=== PATIENT | male | born 1965 | race African-American/Black ===

== ENCOUNTER 2016-04-13 09:05 | Inpatient (IN) | payer OTHER ==
[2016-04-13 09:17] VITALS: BMI 36.1
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
[2016-04-13] MEDS ORDERED: chlordiazePOXIDE HCL 25 MG CAPSULE PO PRN (09:31)
[2016-04-13] MEDS ORDERED: P-EPHED 60MG/TRIPROLIDI 2.5MG TABLET PO PRN (09:31)
[2016-04-13] MEDS ORDERED: IBUPROFEN 400 MG TABLET (FP) PO PRN (09:31)
[2016-04-13] MEDS ORDERED: guaiFENesin/D-METHORPHAN HB 10 ML UNIT-DOSE CUPS PO PRN (09:31)
[2016-04-13] MEDS ORDERED: chlordiazePOXIDE HCL 25 MG CAPSULE PO ONE (09:31)
[2016-04-13] MEDS ORDERED: ACETAMINOPHEN 325 MG TABLET (FP) PO PRN (09:31)
[2016-04-13] MEDS ORDERED: MAGNESIUM HYDROX 2400MG/30ML ORAL SUSPENSION 30 ML CUP PO PRN (09:31)
[2016-04-13] MEDS ORDERED: diphenhydrAMINE HCL 50 MG CAPSULE PO PRN (09:31)
[2016-04-13] MEDS ORDERED: MAG HYDROX/AL HYDROX/SIMETH 30 ML UNIT-DOSE CUP PO PRN (09:31)
[2016-04-13] MEDS ORDERED: MAGNESIUM CITRATE 300 ML BOTTLE PO PRN (09:31)
[2016-04-13] MEDS ORDERED: LOPERAMIDE HCL 2 MG CAPSULE PO PRN (09:31)
[2016-04-13] MEDS: chlordiazePOXIDE HCL 25 MG CAPSULE PO SCH ×3 (12:10→22:21)
[2016-04-13] MEDS: METOPROLOL SUCCINATE 100 MG TAB.SR.24H (FP) PO SCH (12:11)
[2016-04-13] MEDS: amLODIPine BESYLATE 10 MG TABLET (FP) PO SCH (12:11)
[2016-04-13] MEDS: PRENATAL VITAMINS W/ FOLIC ACID TABLET (FP) PO SCH (12:12)
--- NOTE | 2016-04-13 16:15 | EKG ---
Test Reason : Blood Pressure : / mmHG Vent. Rate : 073 BPM Atrial Rate : 073 BPM P-R Int : 140 ms QRS Dur : 098 ms QT Int : 370 ms P-R-T Axes : 044 060 029 degrees QTc Int : 407 ms NORMAL SINUS RHYTHM MODERATE VOLTAGE CRITERIA FOR LVH, MAY BE NORMAL VARIANT BORDERLINE ECG NO PREVIOUS ECGS AVAILABLE Confirmed by ALEXANDRU TAFOYA MD ([id number]) on 04/13/2016 4:14:59 PM Referred By: Confirmed By:ALEXANDRU TAFOYA MD
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
[2016-04-13 17:57] LABS: URINE APPEARANCE CLEAR; URINE BILIRUBIN NEGATIVE (NEGATIVE); URINE BLOOD NEGATIVE (NEGATIVE); URINE COLOR YELLOW; URINE GLUCOSE (UA) NEGATIVE (NEGATIVE); URINE KETONE NEGATIVE (NEGATIVE); URINE LEUK ESTERASE NEGATIVE (NEGATIVE); URINE NITRITE NEGATIVE (NEGATIVE); URINE UROBILINOGEN NEGATIVE E.U./dl (0.2-1.0)
[2016-04-13 18:13] LABS: URINE PROTEIN 2+ (NEGATIVE)
[2016-04-13 18:49] LABS: URINE MUCUS RARE; URINE RBC 5 /hpf (0-3); URINE WBC <1 /hpf (3-5)
[2016-04-13] MEDS: THIAMINE HCL 100 MG TABLET (FP) PO SCH (22:22)
[2016-04-14] MEDS: chlordiazePOXIDE HCL 25 MG CAPSULE PO SCH ×4 (05:20→22:18)
[2016-04-14] MEDS: MENTHOL/PHENOL 1 EACH UD MM PRN (05:22)
[2016-04-14 09:16] LABS: MCH 32.3 pg (25.7-33.7); MCHC 33.5 g/dl (32.0-35.9); MEAN CELL VOLUME 96.6 fl (80-96); PLATELET COUNT 261 K/MM3 (134-434); RDW 13.8 % (11.9-15.9); WHITE BLOOD COUNT 7.2 K/mm3 (4.0-10.0)
[2016-04-14 09:36] LABS: BILIRUBIN,TOTAL 0.8 mg/dL (0.2-1.0); CALCIUM 9.1 mg/dL (8.5-10.1); CREATININE 1.5 mg/dL (0.7-1.3); TOT PROT 7.9 g/dl (6.4-8.2)
[2016-04-14] MEDS: PRENATAL VITAMINS W/ FOLIC ACID TABLET (FP) PO SCH (10:17)
[2016-04-14] MEDS: amLODIPine BESYLATE 10 MG TABLET (FP) PO SCH (10:18)
[2016-04-14] MEDS: METOPROLOL SUCCINATE 100 MG TAB.SR.24H (FP) PO SCH (10:18)
--- NOTE | 2016-04-14 14:25 | PN ---
S CIWA - CIWA Score Nausea/Vomitin-Mild Nausea/No Vomiting Muscle Tremors: 4-Moderate,w/Arms Extend Anxiety: 4-Mod. Anxious/Guarded Agitation: 4-Moderately Restless Paroxysmal Sweats: No Perspiration Orientation: 0-Oriented Tacttile Disturbances: 1-Very Mild Itch/Numbness Auditory Disturbances: 0-None Visual Disturbances: 0-None Headache: 2-Mild CIWA-Ar Total Score: 16 BHS Progress Note (SOAP) Subjective: Anxious, interrupted sleep, tremor, sweating, restless Objective: 04/14/16 14:21 Last Vital Signs Temp Pulse Resp BP Pulse Ox 96.8 F L 88 18 127/78 04/14/16 13:34 04/14/16 13:34 04/14/16 13:34 04/14/16 13:34 Laboratory Tests 04/13/16 04/14/16 04/14/16 14:00 07:20 07:20 WBC 7.2 RBC 4.53 Hgb 14.6 Hct 43.8 MCV 96.6 H MCHC 33.5 RDW 13.8 Plt Count 261 MPV 11.0 Sodium 144 Potassium 4.0 Chloride 108 H Carbon Dioxide 28 Anion Gap 8 BUN 9 Creatinine 1.5 H Creat Clearance w eGFR 49.15 Random Glucose 91 D Calcium 9.1 Total Bilirubin 0.8 D AST 16 ALT 23 Alkaline Phosphatase 85 Total Protein 7.9 Albumin 4.0 Urine Color Yellow Urine Appearance Clear Urine pH 5.0 Ur Specific [place] 1.016 Urine Protein 2+ H Urine Glucose (UA) Negative Urine Ketones Negative Urine Blood Negative Urine Nitrite Negative Urine Bilirubin Negative Urine Urobilinogen Negative Ur Leukocyte Esterase Negative Urine RBC 5 Urine WBC <1 Ur Epithelial Cells Rare Urine Mucus Rare RPR Titer 04/14/16 07:20 WBC RBC Hgb Hct MCV MCHC RDW Plt Count MPV Sodium Potassium Chloride Carbon Dioxide Anion Gap BUN Creatinine Creat Clearance w eGFR Random Glucose Calcium Total Bilirubin AST ALT Alkaline Phosphatase Total Protein Albumin Urine Color Urine Appearance Urine pH Ur Specific [place] Urine Protein Urine Glucose (UA) Urine Ketones Urine Blood Urine Nitrite Urine Bilirubin Urine Urobilinogen Ur Leukocyte Esterase Urine RBC Urine WBC Ur Epithelial Cells Urine Mucus RPR Titer Nonreactive Labs noted: serum creatinine 1.5, UA: 2+ protein Assessment: 04/14/16 14:25 Withdrawal symptoms Noted with elevated serum creatinine Noted with proteinuria Plan: Continue detox Elevated creatinine: encouraged to drink lots of water, repeat BMP Proteinuria: repeat UA
[2016-04-14 17:33] LABS: URINE APPEARANCE CLEAR; URINE BILIRUBIN NEGATIVE (NEGATIVE); URINE BLOOD NEGATIVE (NEGATIVE); URINE COLOR STRAW; URINE GLUCOSE (UA) NEGATIVE (NEGATIVE); URINE KETONE NEGATIVE (NEGATIVE); URINE LEUK ESTERASE NEGATIVE (NEGATIVE); URINE NITRITE NEGATIVE (NEGATIVE); URINE PROTEIN NEGATIVE (NEGATIVE); URINE UROBILINOGEN NEGATIVE E.U./dl (0.2-1.0)
[2016-04-14] MEDS: THIAMINE HCL 100 MG TABLET (FP) PO SCH (22:19)
[2016-04-15] MEDS: chlordiazePOXIDE HCL 25 MG CAPSULE PO SCH (05:35)
--- NOTE | 2016-04-15 10:07 | PN ---
[facility] CIWA - CIWA Score Nausea/Vomitin-No Nausea/No Vomiting Muscle Tremors: 3 Anxiety: 4-Mod. Anxious/Guarded Agitation: 4-Moderately Restless Paroxysmal Sweats: 3 Orientation: 0-Oriented Tacttile Disturbances: 0-None Auditory Disturbances: 0-None Visual Disturbances: 0-None Headache: 0-None Present CIWA-Ar Total Score: 14 BHS Progress Note (SOAP) Subjective: ANXIETY,TREMORS,SWEATING,INTERRUPTED SLEEP,RESTLESS Objective: 04/15/16 10:06 Vital Signs - 8 hr 04/15/16 04/15/16 03:30 06:36 Temperature 97.7 F Pulse Rate 83 Respiratory 20 16 Rate Blood Pressure 149/87 Laboratory Last Values WBC 7.2 K/mm3 (4.0-10.0) 04/14/16 07:20 RBC 4.53 M/mm3 (4.00-5.60) 04/14/16 07:20 Hgb 14.6 GM/dL (11.7-16.9) 04/14/16 07:20 Hct 43.8 % (35.4-49) 04/14/16 07:20 MCV 96.6 fl (80-96) H 04/14/16 07:20 MCHC 33.5 g/dl (32.0-35.9) 04/14/16 07:20 RDW 13.8 % (11.9-15.9) 04/14/16 07:20 Plt Count 261 K/MM3 (134-434) 04/14/16 07:20 MPV 11.0 fl (7.5-11.1) 04/14/16 07:20 Sodium 144 mmol/L (136-145) 04/14/16 07:20 Potassium 4.0 mmol/L (3.5-5.1) 04/14/16 07:20 Chloride 108 mmol/L (98-107) H 04/14/16 07:20 Carbon Dioxide 28 mmol/L (21-32) 04/14/16 07:20 Anion Gap 8 (8-16) 04/14/16 07:20 BUN 9 mg/dL (7-18) 04/14/16 07:20 Creatinine 1.5 mg/dL (0.7-1.3) H 04/14/16 07:20 Creat Clearance w eGFR 49.15 (>60) 04/14/16 07:20 Random Glucose 91 mg/dL (74-106) D 04/14/16 07:20 Calcium 9.1 mg/dL (8.5-10.1) 04/14/16 07:20 Total Bilirubin 0.8 mg/dL (0.2-1.0) D 04/14/16 07:20 AST 16 U/L (15-37) 04/14/16 07:20 ALT 23 U/L (12-78) 04/14/16 07:20 Alkaline Phosphatase 85 U/L (45-117) 04/14/16 07:20 Total Protein 7.9 g/dl (6.4-8.2) 04/14/16 07:20 Albumin 4.0 g/dl (3.4-5.0) 04/14/16 07:20 Urine Color Straw 04/14/16 11:00 Urine Appearance Clear 04/14/16 11:00 Urine pH 7.0 (5.0-8.0) D 04/14/16 11:00 Ur Specific [place] 1.009 (1.001-1.035) 04/14/16 11:00 Urine Protein Negative (NEGATIVE) 04/14/16 11:00 Urine Glucose (UA) Negative (NEGATIVE) 04/14/16 11:00 Urine Ketones Negative (NEGATIVE) 04/14/16 11:00 Urine Blood Negative (NEGATIVE) 04/14/16 11:00 Urine Nitrite Negative (NEGATIVE) 04/14/16 11:00 Urine Bilirubin Negative (NEGATIVE) 04/14/16 11:00 Urine Urobilinogen Negative E.U./dl (0.2-1.0) 04/14/16 11:00 Ur Leukocyte Esterase Negative (NEGATIVE) 04/14/16 11:00 Urine RBC 5 /hpf (0-3) 04/13/16 14:00 Urine WBC <1 /hpf (3-5) 04/13/16 14:00 Ur Epithelial Cells Rare /hpf (FEW) 04/13/16 14:00 Urine Mucus Rare 04/13/16 14:00 RPR Titer Nonreactive (NONREACTIVE) 04/14/16 07:20 LABS NOTED Assessment: 04/15/16 10:07 WITHDRAWAL SX. Plan: CONTINUE DETOX
[2016-04-15] MEDS: PRENATAL VITAMINS W/ FOLIC ACID TABLET (FP) PO SCH (10:20)
[2016-04-15] MEDS: amLODIPine BESYLATE 10 MG TABLET (FP) PO SCH (10:20)
[2016-04-15] MEDS: METOPROLOL SUCCINATE 100 MG TAB.SR.24H (FP) PO SCH (10:20)
[2016-04-15] MEDS: chlordiazePOXIDE 5 MG CAPSULE PO SCH ×3 (10:21→22:35)
[2016-04-15] MEDS: MENTHOL/PHENOL 1 EACH UD MM PRN ×2 (10:23→17:02)
[2016-04-15] MEDS: SODIUM CHLORIDE NASAL SPRAY 44 ML BOTTLE NS PRN (11:02)
[2016-04-15] MEDS: diphenhydrAMINE HCL 50 MG CAPSULE PO SCH (22:35)
[2016-04-15] MEDS: THIAMINE HCL 100 MG TABLET (FP) PO SCH (22:35)
[2016-04-16] MEDS: SODIUM CHLORIDE NASAL SPRAY 44 ML BOTTLE NS PRN (03:23)
[2016-04-16] MEDS: MENTHOL/PHENOL 1 EACH UD MM PRN (05:27)
[2016-04-16] MEDS: chlordiazePOXIDE 5 MG CAPSULE PO SCH (05:27)
[2016-04-16] MEDS: METOPROLOL SUCCINATE 100 MG TAB.SR.24H (FP) PO SCH (10:27)
[2016-04-16] MEDS: PRENATAL VITAMINS W/ FOLIC ACID TABLET (FP) PO SCH (10:28)
[2016-04-16] MEDS: amLODIPine BESYLATE 10 MG TABLET (FP) PO SCH (10:28)
[2016-04-16] MEDS: AZITHROMYCIN 250 MG TABLET (FP) PO SCH (10:29)
[2016-04-16] MEDS: chlordiazePOXIDE HCL 10 MG CAPSULE PO SCH ×3 (10:30→22:21)
--- NOTE | 2016-04-16 11:36 | PN ---
BHS Progress Note (SOAP) Subjective: SWEATING,INTERRUPTED SLEEP,RESTLESS.C/O PRODUCTIVE COUGH,PLEURITIC CHEST PAIN & SORE THROAT. Objective: 04/16/16 11:33 Vital Signs - 8 hr 04/16/16 04/16/16 06:18 09:19 Temperature 98 F 99.7 F H Pulse Rate 88 99 H Respiratory 16 20 Rate Blood Pressure 109/71 126/83 Laboratory Last Values WBC 7.2 K/mm3 (4.0-10.0) 04/14/16 07:20 RBC 4.53 M/mm3 (4.00-5.60) 04/14/16 07:20 Hgb 14.6 GM/dL (11.7-16.9) 04/14/16 07:20 Hct 43.8 % (35.4-49) 04/14/16 07:20 MCV 96.6 fl (80-96) H 04/14/16 07:20 MCHC 33.5 g/dl (32.0-35.9) 04/14/16 07:20 RDW 13.8 % (11.9-15.9) 04/14/16 07:20 Plt Count 261 K/MM3 (134-434) 04/14/16 07:20 MPV 11.0 fl (7.5-11.1) 04/14/16 07:20 Sodium 144 mmol/L (136-145) 04/14/16 07:20 Potassium 4.0 mmol/L (3.5-5.1) 04/14/16 07:20 Chloride 108 mmol/L (98-107) H 04/14/16 07:20 Carbon Dioxide 28 mmol/L (21-32) 04/14/16 07:20 Anion Gap 8 (8-16) 04/14/16 07:20 BUN 9 mg/dL (7-18) 04/14/16 07:20 Creatinine 1.5 mg/dL (0.7-1.3) H 04/14/16 07:20 Creat Clearance w eGFR 49.15 (>60) 04/14/16 07:20 Random Glucose 91 mg/dL (74-106) D 04/14/16 07:20 Calcium 9.1 mg/dL (8.5-10.1) 04/14/16 07:20 Total Bilirubin 0.8 mg/dL (0.2-1.0) D 04/14/16 07:20 AST 16 U/L (15-37) 04/14/16 07:20 ALT 23 U/L (12-78) 04/14/16 07:20 Alkaline Phosphatase 85 U/L (45-117) 04/14/16 07:20 Total Protein 7.9 g/dl (6.4-8.2) 04/14/16 07:20 Albumin 4.0 g/dl (3.4-5.0) 04/14/16 07:20 Urine Color Straw 04/14/16 11:00 Urine Appearance Clear 04/14/16 11:00 Urine pH 7.0 (5.0-8.0) D 04/14/16 11:00 Ur Specific [place] 1.009 (1.001-1.035) 04/14/16 11:00 Urine Protein Negative (NEGATIVE) 04/14/16 11:00 Urine Glucose (UA) Negative (NEGATIVE) 04/14/16 11:00 Urine Ketones Negative (NEGATIVE) 04/14/16 11:00 Urine Blood Negative (NEGATIVE) 04/14/16 11:00 Urine Nitrite Negative (NEGATIVE) 04/14/16 11:00 Urine Bilirubin Negative (NEGATIVE) 04/14/16 11:00 Urine Urobilinogen Negative E.U./dl (0.2-1.0) 04/14/16 11:00 Ur Leukocyte Esterase Negative (NEGATIVE) 04/14/16 11:00 Urine RBC 5 /hpf (0-3) 04/13/16 14:00 Urine WBC <1 /hpf (3-5) 04/13/16 14:00 Ur Epithelial Cells Rare /hpf (FEW) 04/13/16 14:00 Urine Mucus Rare 04/13/16 14:00 RPR Titer Nonreactive (NONREACTIVE) 04/14/16 07:20 LABS NOTED THROAT : ENLARGED LEFT TONSIL LUNGS : GROSSLY CLEAR EXCEPT FOR A FEW SCATTERED RHONCHI Assessment: 04/16/16 11:35 WITHDRAWAL SX. R/O URI R/O BRONCHITIS Plan: CONTINUE DETOX ZYTHROMAX 500MG PO X 7 DAYS.
[2016-04-16] MEDS ORDERED: diphenhydrAMINE HCL 25 MG CAPSULE (FP) PO ONE (21:27)
[2016-04-16] MEDS: THIAMINE HCL 100 MG TABLET (FP) PO SCH (22:21)
[2016-04-16] MEDS: diphenhydrAMINE HCL 50 MG CAPSULE PO SCH (22:21)
[2016-04-17] MEDS: chlordiazePOXIDE HCL 10 MG CAPSULE PO SCH (05:25)
[2016-04-17] MEDS: AZITHROMYCIN 250 MG TABLET (FP) PO SCH (09:04)
[2016-04-17] MEDS: PRENATAL VITAMINS W/ FOLIC ACID TABLET (FP) PO SCH (09:04)
[2016-04-17] MEDS: amLODIPine BESYLATE 10 MG TABLET (FP) PO SCH (09:04)
[2016-04-17 09:50] VITALS: BP 121/76; PULSE 93; TEMP 97.1
--- NOTE | 2016-04-17 12:35 | DS ---
[facility] Detox Discharge Summary Admission Date: 04/13/16 Discharge Date: 04/17/16 - History Present History: Alcohol Dependence, Cocaine Dependence Additional Comments: DETOX COMPLETED. Pertinent Past History: HIV+ HTNLIPOMA ARM OSTEOARTHRITIS KNEE TINEA VESICOLOR OBESITY - Physical Exam Results Vital Signs: Vital Signs Temperature 97.1 F L 04/17/16 09:50 Pulse Rate 93 H 04/17/16 09:50 Respiratory Rate 18 04/17/16 09:50 Blood Pressure 121/76 04/17/16 09:50 O2 Sat by Pulse Oximetry (%) Pertinent Admission Physical Exam Findings: WITHDRAWAL SX - Treatment Hospital Course: Detox Protocol Followed, Detoxed Safely, Responded well, Discharged Condition Good - Medication Discharge Medications: Ambulatory Orders Metoprolol Succinate [Toprol XL -] 100 mg PO DAILY 12/29/13 Amlodipine Besylate [Norvasc -] 10 mg PO DAILY 04/13/16 - Diagnosis (1) Human immunodeficiency virus infection Status: Chronic (2) Alcohol dependence with uncomplicated withdrawal Status: Acute (3) Lipoma of arm Status: Chronic (4) Nicotine dependence Status: Chronic Qualifiers: Nicotine product type: cigarettes Substance use status: uncomplicated Qualified Code(s): F17.210 - Nicotine dependence, cigarettes, uncomplicated (5) Tinea versicolor Status: Chronic (6) HTN (hypertension) Status: Chronic Qualifiers: Hypertension type: essential hypertension Qualified Code(s): I10 - Essential (primary) hypertension (7) Knee osteoarthritis Status: Chronic Qualifiers: Osteoarthritis type: unspecified Laterality: bilateral Qualified Code(s): M17.0 - Bilateral primary osteoarthritis of knee (8) Obesity (BMI 30-39.9) Status: Chronic - AMA Did Patient Leave Against Medical Advice: No
== END 2016-04-17 08:56 | disposition home or self-care (01) | DRG 775 ==
LOC: YASAS 09:05 → Y3N 10:57
PROVIDERS: ADMIT Internal Medicine; ATTEND Internal Medicine
PROC: HZ2ZZZZ Detoxification Services for Substance Abuse Treatment (ICD-10-PCS; principal; 2016-04-13)
DX: F10.230 Alcohol dependence with withdrawal, uncomplicated (principal); F17.210 Nicotine dependence, cigarettes, uncomplicated; Z21 Asymptomatic human immunodeficiency virus [HIV] infection status; D17.20 Benign lipomatous neoplasm of skin and subcutaneous tissue of unspecified limb; B36.0 Pityriasis versicolor; I10 Essential (primary) hypertension; M17.0 Bilateral primary osteoarthritis of knee; E66.9 Obesity, unspecified; Z68.36 Body mass index [BMI] 36.0-36.9, adult; R79.89 Other specified abnormal findings of blood chemistry; R80.9 Proteinuria, unspecified; J06.9 Acute upper respiratory infection, unspecified; J40 Bronchitis, not specified as acute or chronic
CPT/HCPCS: 36415; 80053; 81003; 81015; 85027; 86593; 93005; 93010

== ENCOUNTER 2016-08-11 08:45 | Inpatient (IN) | payer OTHER ==
[2016-08-11 09:23] VITALS: BMI 35.6
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
[2016-08-11] MEDS ORDERED: P-EPHED 60MG/TRIPROLIDI 2.5MG TABLET PO PRN (14:30)
[2016-08-11] MEDS ORDERED: MAG HYDROX/AL HYDROX/SIMETH 30 ML UNIT-DOSE CUP PO PRN (14:30)
[2016-08-11] MEDS ORDERED: chlordiazePOXIDE HCL 25 MG CAPSULE PO PRN (14:30)
[2016-08-11] MEDS ORDERED: MAGNESIUM HYDROX 2400MG/30ML ORAL SUSPENSION 30 ML CUP PO PRN (14:30)
[2016-08-11] MEDS ORDERED: chlordiazePOXIDE HCL 25 MG CAPSULE PO ONE (14:30)
[2016-08-11] MEDS ORDERED: MENTHOL/PHENOL 1 EACH UD MM PRN (14:30)
[2016-08-11] MEDS ORDERED: IBUPROFEN 400 MG TABLET (FP) PO PRN (14:30)
[2016-08-11] MEDS ORDERED: LOPERAMIDE HCL 2 MG CAPSULE PO PRN (14:30)
[2016-08-11] MEDS ORDERED: hydrOXYzine PAMOATE 50 MG CAPSULE (FP) PO PRN (14:30)
[2016-08-11] MEDS ORDERED: diphenhydrAMINE HCL 50 MG CAPSULE PO PRN (14:30)
[2016-08-11] MEDS ORDERED: ACETAMINOPHEN 325 MG TABLET (FP) PO PRN (14:30)
[2016-08-11] MEDS ORDERED: guaiFENesin/D-METHORPHAN HB 10 ML UNIT-DOSE CUPS PO PRN (14:30)
[2016-08-11] MEDS ORDERED: MAGNESIUM CITRATE 300 ML BOTTLE PO PRN (14:30)
[2016-08-11] MEDS: chlordiazePOXIDE HCL 25 MG CAPSULE PO SCH ×2 (17:30→22:25)
[2016-08-11 19:42] LABS: URINE APPEARANCE CLEAR; URINE BILIRUBIN NEGATIVE (NEGATIVE); URINE BLOOD NEGATIVE (NEGATIVE); URINE COLOR YELLOW; URINE GLUCOSE (UA) NEGATIVE (NEGATIVE); URINE KETONE NEGATIVE (NEGATIVE); URINE LEUK ESTERASE NEGATIVE (NEGATIVE); URINE NITRITE NEGATIVE (NEGATIVE); URINE PROTEIN 2+ (NEGATIVE); URINE UROBILINOGEN NEGATIVE E.U./dl (0.2-1.0)
[2016-08-11 20:00] LABS: URINE MUCUS RARE; URINE RBC <1 /hpf (0-3); URINE WBC 1 /hpf (3-5)
[2016-08-11] MEDS: THIAMINE HCL 100 MG TABLET (FP) PO SCH (22:25)
[2016-08-12] MEDS: chlordiazePOXIDE HCL 25 MG CAPSULE PO SCH ×3 (05:53→17:13)
[2016-08-12] MEDS ORDERED: METOPROLOL SUCCINATE 50 MG TAB.SR.24H (FP) ONE (09:25)
[2016-08-12 10:07] LABS: MCH 31.8 pg (25.7-33.7); MEAN CELL VOLUME 96.5 fl (80-96); MEAN PLT VOLUME 10.4 fl (7.5-11.1); PLATELET COUNT 219 K/MM3 (134-434); WHITE BLOOD COUNT 7.5 K/mm3 (4.0-10.0)
[2016-08-12 10:24] LABS: ALBUMIN 3.7 g/dl (3.4-5.0); ALK PHOS 85 U/L (45-117); ANION GAP 7 (8-16); BILIRUBIN,TOTAL 0.4 mg/dL (0.2-1.0); CALCIUM 8.8 mg/dL (8.5-10.1); CO2 26 mmol/L (21-32); COCKROFT - GAULT 123.3; CREATININE 1.2 mg/dL (0.7-1.3); GLUCOSE,RANDOM 102 mg/dL (74-106); SGOT/AST 18 U/L (15-37); SGPT/ALT 25 U/L (12-78); TOT PROT 7.5 g/dl (6.4-8.2)
[2016-08-12] MEDS: PRENATAL VITAMINS W/ FOLIC ACID TABLET (FP) PO SCH (10:33)
[2016-08-12] MEDS: METOPROLOL SUCCINATE 100 MG TAB.SR.24H (FP) PO SCH (10:33)
[2016-08-12] MEDS: amLODIPine BESYLATE 10 MG TABLET (FP) PO SCH (10:34)
--- NOTE | 2016-08-12 11:01 | PN ---
[facility] CIWA - CIWA Score Nausea/Vomitin-No Nausea/No Vomiting Muscle Tremors: 4-Moderate,w/Arms Extend Anxiety: 3 Agitation: 3 Paroxysmal Sweats: 3 Orientation: 0-Oriented Tacttile Disturbances: 0-None Auditory Disturbances: 0-None Visual Disturbances: 0-None Headache: 2-Mild CIWA-Ar Total Score: 15 BHS Progress Note (SOAP) Subjective: sweats shakes interrupted sleep body aches agitation Objective: 08/12/16 10:59 Vital Signs Temperature 98.1 F 08/12/16 09:38 Pulse Rate 97 H 08/12/16 09:38 Respiratory Rate 20 08/12/16 09:38 Blood Pressure 121/88 08/12/16 09:38 O2 Sat by Pulse Oximetry (%) Laboratory Tests 08/11/16 08/12/16 08/12/16 Unknown 08:00 08:00 WBC 7.5 RBC 4.39 Hgb 14.0 Hct 42.3 MCV 96.5 H MCHC 33.0 RDW 14.0 Plt Count 219 MPV 10.4 Sodium 141 Potassium 4.2 Chloride 108 H Carbon Dioxide 26 Anion Gap 7 L BUN 14 D Creatinine 1.2 Creat Clearance w eGFR > 60 Random Glucose 102 Calcium 8.8 Total Bilirubin 0.4 D AST 18 ALT 25 Alkaline Phosphatase 85 Total Protein 7.5 Albumin 3.7 Urine Color Yellow Urine Appearance Clear Urine pH 5.0 D Ur Specific [place] 1.015 Urine Protein 2+ H Urine Glucose (UA) Negative Urine Ketones Negative Urine Blood Negative Urine Nitrite Negative Urine Bilirubin Negative Urine Urobilinogen Negative Ur Leukocyte Esterase Negative Urine RBC <1 Urine WBC 1 Ur Epithelial Cells Rare Urine Mucus Rare awake/alert ambulating no acute distress Assessment: 08/12/16 11:01 withdrawal sx Plan: continue detox increase fluids
--- NOTE | 2016-08-12 13:03 | EKG ---
Test Reason : Blood Pressure : / mmHG Vent. Rate : 083 BPM Atrial Rate : 083 BPM P-R Int : 112 ms QRS Dur : 106 ms QT Int : 370 ms P-R-T Axes : 034 062 040 degrees QTc Int : 434 ms NORMAL SINUS RHYTHM NORMAL ECG WHEN COMPARED WITH ECG OF 13-APR-2016 12:18, NO SIGNIFICANT CHANGE WAS FOUND Confirmed by LIGIA VELA MD ([id number]) on 08/12/2016 1:02:30 PM Referred By: Albino Moore Confirmed By:LIGIA VELA MD
[2016-08-12] MEDS: THIAMINE HCL 100 MG TABLET (FP) PO SCH (23:00)
[2016-08-13] MEDS: chlordiazePOXIDE HCL 25 MG CAPSULE PO SCH ×3 (00:06→10:46)
[2016-08-13] MEDS: amLODIPine BESYLATE 10 MG TABLET (FP) PO SCH (10:45)
[2016-08-13] MEDS: PRENATAL VITAMINS W/ FOLIC ACID TABLET (FP) PO SCH (10:46)
[2016-08-13] MEDS: METOPROLOL SUCCINATE 100 MG TAB.SR.24H (FP) PO SCH (10:46)
--- NOTE | 2016-08-13 11:31 | PN ---
S CIWA - CIWA Score Nausea/Vomitin Muscle Tremors: 3 Anxiety: 2 Agitation: 2 Paroxysmal Sweats: 1-Minimal Palms Moist Orientation: 0-Oriented Tacttile Disturbances: 1-Very Mild Itch/Numbness Auditory Disturbances: 1-Very Mild Visual Disturbances: 1-Very Mild Sensitivity Headache: 2-Mild CIWA-Ar Total Score: 16 S Progress Note (SOAP) Subjective: ALERT,IRRITABLE,ANXIOUS,INTERRUPTED SLEEP,INTERRUPTED SLEEP Objective: 08/13/16 11:30 Vital Signs Temperature 98.4 F 08/13/16 09:44 Pulse Rate 81 08/13/16 09:44 Respiratory Rate 18 08/13/16 09:44 Blood Pressure 140/83 08/13/16 09:44 O2 Sat by Pulse Oximetry (%) Laboratory Last Values WBC 7.5 K/mm3 (4.0-10.0) 08/12/16 08:00 RBC 4.39 M/mm3 (4.00-5.60) 08/12/16 08:00 Hgb 14.0 GM/dL (11.7-16.9) 08/12/16 08:00 Hct 42.3 % (35.4-49) 08/12/16 08:00 MCV 96.5 fl (80-96) H 08/12/16 08:00 MCHC 33.0 g/dl (32.0-35.9) 08/12/16 08:00 RDW 14.0 % (11.9-15.9) 08/12/16 08:00 Plt Count 219 K/MM3 (134-434) 08/12/16 08:00 MPV 10.4 fl (7.5-11.1) 08/12/16 08:00 Sodium 141 mmol/L (136-145) 08/12/16 08:00 Potassium 4.2 mmol/L (3.5-5.1) 08/12/16 08:00 Chloride 108 mmol/L (98-107) H 08/12/16 08:00 Carbon Dioxide 26 mmol/L (21-32) 08/12/16 08:00 Anion Gap 7 (8-16) L 08/12/16 08:00 BUN 14 mg/dL (7-18) D 08/12/16 08:00 Creatinine 1.2 mg/dL (0.7-1.3) 08/12/16 08:00 Creat Clearance w eGFR > 60 (>60) 08/12/16 08:00 Random Glucose 102 mg/dL (74-106) 08/12/16 08:00 Calcium 8.8 mg/dL (8.5-10.1) 08/12/16 08:00 Total Bilirubin 0.4 mg/dL (0.2-1.0) D 08/12/16 08:00 AST 18 U/L (15-37) 08/12/16 08:00 ALT 25 U/L (12-78) 08/12/16 08:00 Alkaline Phosphatase 85 U/L (45-117) 08/12/16 08:00 Total Protein 7.5 g/dl (6.4-8.2) 08/12/16 08:00 Albumin 3.7 g/dl (3.4-5.0) 08/12/16 08:00 Urine Color Yellow 08/11/16 Unknown Urine Appearance Clear 08/11/16 Unknown Urine pH 5.0 (5.0-8.0) D 08/11/16 Unknown Ur Specific [place] 1.015 (1.005-1.025) 08/11/16 Unknown Urine Protein 2+ (NEGATIVE) H 08/11/16 Unknown Urine Glucose (UA) Negative (NEGATIVE) 08/11/16 Unknown Urine Ketones Negative (NEGATIVE) 08/11/16 Unknown Urine Blood Negative (NEGATIVE) 08/11/16 Unknown Urine Nitrite Negative (NEGATIVE) 08/11/16 Unknown Urine Bilirubin Negative (NEGATIVE) 08/11/16 Unknown Urine Urobilinogen Negative E.U./dl (0.2-1.0) 08/11/16 Unknown Ur Leukocyte Esterase Negative (NEGATIVE) 08/11/16 Unknown Urine RBC <1 /hpf (0-3) 08/11/16 Unknown Urine WBC 1 /hpf (3-5) 08/11/16 Unknown Ur Epithelial Cells Rare /hpf (FEW) 08/11/16 Unknown Urine Mucus Rare 08/11/16 Unknown RPR Titer Nonreactive (NONREACTIVE) 08/12/16 08:00 Assessment: 08/13/16 11:31 WITHDRAWAL SYMPTOM Plan: CONTINUE DETOX
[2016-08-13] MEDS: chlordiazePOXIDE 5 MG CAPSULE PO SCH ×2 (17:32→23:06)
[2016-08-13] MEDS: THIAMINE HCL 100 MG TABLET (FP) PO SCH (23:06)
[2016-08-14] MEDS: chlordiazePOXIDE 5 MG CAPSULE PO SCH ×2 (05:26→11:40)
[2016-08-14] MEDS: PRENATAL VITAMINS W/ FOLIC ACID TABLET (FP) PO SCH (10:30)
[2016-08-14] MEDS: METOPROLOL SUCCINATE 100 MG TAB.SR.24H (FP) PO SCH (10:30)
[2016-08-14] MEDS: amLODIPine BESYLATE 10 MG TABLET (FP) PO SCH (10:30)
--- NOTE | 2016-08-14 11:22 | PN ---
BHS Progress Note (SOAP) Subjective: anxious Objective: 08/14/16 11:21 Vital Signs Temperature 97.7 F 08/14/16 09:41 Pulse Rate 86 08/14/16 09:41 Respiratory Rate 20 08/14/16 09:41 Blood Pressure 130/79 08/14/16 09:41 O2 Sat by Pulse Oximetry (%) awake/alert ambulating no acute distress Assessment: 08/14/16 11:22 withdrawal sx Plan: continue detox increase fluids d/c in am
[2016-08-14] MEDS: chlordiazePOXIDE HCL 10 MG CAPSULE PO SCH ×2 (17:39→22:48)
[2016-08-14] MEDS: THIAMINE HCL 100 MG TABLET (FP) PO SCH (22:48)
[2016-08-15] MEDS: chlordiazePOXIDE HCL 10 MG CAPSULE PO SCH (05:31)
--- NOTE | 2016-08-15 09:01 | PN ---
S Progress Note (SOAP) Subjective: ALERT,NO COMPLAINT Objective: 08/15/16 08:59 Vital Signs Temperature 97.7 F 08/15/16 06:37 Pulse Rate 81 08/15/16 06:37 Respiratory Rate 20 08/15/16 06:37 Blood Pressure 120/73 08/15/16 06:37 O2 Sat by Pulse Oximetry (%) Assessment: 08/15/16 08:59 DETOX COMPLETED,NO WITHDRAWAL SYMPTOM Plan: DISCHARGED TODAY,FOLLOW UP WITH AFTER CARE PROGRAM ARRANGEMENT
--- NOTE | 2016-08-15 09:04 | DS ---
[facility] Detox Discharge Summary Admission Date: 08/11/16 Discharge Date: 08/15/16 - History Present History: Alcohol Dependence, Cocaine Dependence Additional Comments: FOLLOW UP WITH AFTER [facility] PROGRAM ARRANGEMENT AND PMD FOR MEDICAL PROBLEM Pertinent Past History: HYPERTENSION HIV OBESITY SYNCOPE - Physical Exam Results Vital Signs: Vital Signs Temperature 97.7 F 08/15/16 06:37 Pulse Rate 81 08/15/16 06:37 Respiratory Rate 20 08/15/16 06:37 Blood Pressure 120/73 08/15/16 06:37 O2 Sat by Pulse Oximetry (%) Pertinent Admission Physical Exam Findings: WITHDRAWAL SYMPTOM - Treatment Hospital Course: Detox Protocol Followed, Detoxed Safely, Responded well, Discharged Condition Good Patient has Accepted a Rehab Referral to: DECLINED - Medication Discharge Medications: Ambulatory Orders Metoprolol Succinate [Toprol XL -] 100 mg PO DAILY 12/29/13 Amlodipine Besylate [Norvasc -] 10 mg PO DAILY 04/13/16 - Diagnosis (1) Alcohol dependence with uncomplicated withdrawal Current Visit: No Status: Acute (2) HTN (hypertension) Current Visit: No Status: Chronic Qualifiers: Hypertension type: essential hypertension Qualified Code(s): I10 - Essential (primary) hypertension (3) Human immunodeficiency virus infection Current Visit: No Status: Chronic (4) Obesity (BMI 30-39.9) Current Visit: No Status: Chronic (5) Syncope Current Visit: Yes Status: Acute - AMA Did Patient Leave Against Medical Advice: No
[2016-08-15 09:25] VITALS: BP 143/86; PULSE 94; TEMP 97.9
== END 2016-08-15 09:10 | disposition home or self-care (01) | DRG 775 ==
LOC: YASAS 08:45 → Y6N 12:05
PROVIDERS: ADMIT Internal Medicine Addiction Medicine; ATTEND Internal Medicine Addiction Medicine
PROC: HZ2ZZZZ Detoxification Services for Substance Abuse Treatment (ICD-10-PCS; principal; 2016-08-15)
DX: F10.230 Alcohol dependence with withdrawal, uncomplicated (principal); F17.210 Nicotine dependence, cigarettes, uncomplicated; I10 Essential (primary) hypertension; R55 Syncope and collapse; Z21 Asymptomatic human immunodeficiency virus [HIV] infection status; E66.09 Other obesity due to excess calories; Z68.35 Body mass index [BMI] 35.0-35.9, adult
CPT/HCPCS: 36415; 80053; 81003; 81015; 85027; 86593; 93005; 93010

== ENCOUNTER 2017-01-11 09:44 | Inpatient (IN) | payer OTHER ==
[2017-01-11 09:58] VITALS: BMI 36.1
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
[2017-01-11] MEDS ORDERED: P-EPHED 60MG/TRIPROLIDI 2.5MG TABLET PO PRN (11:18)
[2017-01-11] MEDS ORDERED: NICOTINE POLACRILEX 2 MG GUM BUC PRN (11:18)
[2017-01-11] MEDS ORDERED: MAGNESIUM CITRATE 300 ML BOTTLE PO PRN (11:18)
[2017-01-11] MEDS ORDERED: hydrOXYzine PAMOATE 50 MG CAPSULE (FP) PO PRN (11:18)
[2017-01-11] MEDS ORDERED: guaiFENesin/D-METHORPHAN HB 10 ML UNIT-DOSE CUPS PO PRN (11:18)
[2017-01-11] MEDS ORDERED: LOPERAMIDE HCL 2 MG CAPSULE PO PRN (11:18)
[2017-01-11] MEDS ORDERED: MENTHOL/PHENOL 1 EACH UD MM PRN (11:18)
[2017-01-11] MEDS ORDERED: MAGNESIUM HYDROX 2400MG/30ML ORAL SUSPENSION 30 ML CUP PO PRN (11:18)
[2017-01-11] MEDS ORDERED: MAG HYDROX/AL HYDROX/SIMETH 30 ML UNIT-DOSE CUP PO PRN (11:18)
[2017-01-11] MEDS ORDERED: ACETAMINOPHEN 325 MG TABLET (FP) PO PRN (11:18)
[2017-01-11] MEDS ORDERED: ZOLPIDEM TARTRATE 5 MG TABLET PO PRN (11:20)
[2017-01-11] MEDS ORDERED: chlordiazePOXIDE HCL 25 MG CAPSULE PO PRN (11:21)
[2017-01-11] MEDS ORDERED: chlordiazePOXIDE HCL 25 MG CAPSULE PO ONE (12:30)
[2017-01-11] MEDS: ASPIRIN COATED 81 MG TABLET.EC PO SCH (13:43)
[2017-01-11] MEDS: CLOTRIMAZOLE/BETAMET DIPROP TOPICAL CREAM 45 GM TUBE TP SCH ×2 (13:43→22:09)
[2017-01-11] MEDS: NICOTINE 14 MG/24 HOURS TOPICAL PATCH TD SCH (13:43)
[2017-01-11] MEDS: ENALAPRIL MALEATE 5 MG TABLET (FP) PO SCH (13:44)
[2017-01-11] MEDS: METOPROLOL SUCCINATE 100 MG TAB.SR.24H (FP) PO SCH (13:44)
[2017-01-11] MEDS ORDERED: PATIENT'S OWN MEDICATION (NON-FORMULARY) (Gabapentin [Neurontin] 600 MG) PO SCH (14:00)
[2017-01-11] MEDS: GABAPENTIN 300 MG CAPSULE (FP) PO SCH ×2 (17:51→22:07)
[2017-01-11] MEDS: chlordiazePOXIDE HCL 25 MG CAPSULE PO SCH ×2 (17:52→22:08)
[2017-01-11 18:41] LABS: URINE APPEARANCE CLEAR; URINE BILIRUBIN NEGATIVE (NEGATIVE); URINE BLOOD NEGATIVE (NEGATIVE); URINE COLOR YELLOW; URINE GLUCOSE (UA) NEGATIVE (NEGATIVE); URINE KETONE NEGATIVE (NEGATIVE); URINE NITRITE NEGATIVE (NEGATIVE); URINE UROBILINOGEN NEGATIVE mg/dL (0.2-1.0)
[2017-01-11 18:52] LABS: URINE PROTEIN 2+ (NEGATIVE)
[2017-01-11 19:00] LABS: URINE MUCUS RARE; URINE RBC <1 /hpf (0-3); URINE WBC 1 /hpf (3-5)
[2017-01-11 21:13] LABS: URINE LEUK ESTERASE Negative (NEGATIVE)
[2017-01-11] MEDS: THIAMINE HCL 100 MG TABLET (FP) PO SCH (22:07)
[2017-01-12] MEDS: chlordiazePOXIDE HCL 25 MG CAPSULE PO SCH ×4 (05:39→22:11)
[2017-01-12] MEDS: GABAPENTIN 300 MG CAPSULE (FP) PO SCH ×3 (05:39→22:12)
[2017-01-12] MEDS: ENALAPRIL MALEATE 5 MG TABLET (FP) PO SCH (10:06)
[2017-01-12] MEDS: ASPIRIN COATED 81 MG TABLET.EC PO SCH (10:06)
[2017-01-12] MEDS: CLOTRIMAZOLE/BETAMET DIPROP TOPICAL CREAM 45 GM TUBE TP SCH ×2 (10:06→22:11)
[2017-01-12] MEDS: PRENATAL VITAMINS W/ FOLIC ACID TABLET (FP) PO SCH (10:06)
[2017-01-12] MEDS: NICOTINE 14 MG/24 HOURS TOPICAL PATCH TD SCH (10:06)
[2017-01-12 11:31] LABS: MCH 31.2 pg (25.7-33.7); MCHC 32.4 g/dl (32.0-35.9); MEAN CELL VOLUME 96.3 fl (80-96); MEAN PLT VOLUME 10.8 fl (7.5-11.1); PLATELET COUNT 205 K/MM3 (134-434); RDW 13.9 % (11.9-15.9); WHITE BLOOD COUNT 7.6 K/mm3 (4.0-10.0)
--- NOTE | 2017-01-12 11:41 | EKG ---
Test Reason : Blood Pressure : / mmHG Vent. Rate : 076 BPM Atrial Rate : 076 BPM P-R Int : 120 ms QRS Dur : 104 ms QT Int : 384 ms P-R-T Axes : 083 057 043 degrees QTc Int : 432 ms NORMAL SINUS RHYTHM NORMAL ECG WHEN COMPARED WITH ECG OF 11-AUG-2016 13:55, NO SIGNIFICANT CHANGE WAS FOUND Confirmed by DAMIAN SAMUELS MD ([id number]) on 01/12/2017 11:41:22 AM Referred By: Lazaro Grant Confirmed By:DAMIAN SAMUELS MD
[2017-01-12 11:54] LABS: CALCIUM 8.4 mg/dL (8.5-10.1)
[2017-01-12] MEDS ORDERED: FLU VACCINE QUAD 60 MCG/0.5 ML (MDV 17-18) IM ONE (12:00)
[2017-01-12 12:01] LABS: ALBUMIN 3.3 g/dl (3.4-5.0); ALK PHOS 81 U/L (45-117); ANION GAP 9 (8-16); BILIRUBIN,TOTAL 0.5 mg/dL (0.2-1.0); CO2 27 mmol/L (21-32); CREATININE 1.2 mg/dL (0.7-1.3); GLUCOSE,RANDOM 98 mg/dL (74-106); SGOT/AST 10 U/L (15-37); SGPT/ALT 19 U/L (12-78); TOT PROT 6.8 g/dl (6.4-8.2)
[2017-01-12] MEDS: METOPROLOL SUCCINATE 100 MG TAB.SR.24H (FP) PO SCH (12:27)
--- NOTE | 2017-01-12 13:22 | PN ---
[facility] CIWA - CIWA Score Nausea/Vomitin-No Nausea/No Vomiting Muscle Tremors: 4-Moderate,w/Arms Extend Anxiety: 4-Mod. Anxious/Guarded Agitation: 4-Moderately Restless Paroxysmal Sweats: 1-Minimal Palms Moist Orientation: 0-Oriented Tacttile Disturbances: 3-Moderate Itch/Numb/Burn Auditory Disturbances: 0-None Visual Disturbances: 0-None Headache: 0-None Present CIWA-Ar Total Score: 16 S Progress Note (SOAP) Subjective: ANIETY,SWEATS,C/O SLIGHT DROWSINESS,FATIGUE. Objective: 01/12/17 13:21 Vital Signs Temperature 96.3 F L 01/12/17 10:05 Pulse Rate 85 01/12/17 10:05 Respiratory Rate 20 01/12/17 10:05 Blood Pressure 124/79 01/12/17 10:05 O2 Sat by Pulse Oximetry (%) Laboratory Last Values WBC 7.6 K/mm3 (4.0-10.0) 01/12/17 07:45 RBC 4.16 M/mm3 (4.00-5.60) 01/12/17 07:45 Hgb 13.0 GM/dL (11.7-16.9) 01/12/17 07:45 Hct 40.1 % (35.4-49) 01/12/17 07:45 MCV 96.3 fl (80-96) H 01/12/17 07:45 MCH 31.2 pg (25.7-33.7) 01/12/17 07:45 MCHC 32.4 g/dl (32.0-35.9) 01/12/17 07:45 RDW 13.9 % (11.9-15.9) 01/12/17 07:45 Plt Count 205 K/MM3 (134-434) 01/12/17 07:45 MPV 10.8 fl (7.5-11.1) 01/12/17 07:45 Sodium 143 mmol/L (136-145) 01/12/17 07:45 Potassium 3.9 mmol/L (3.5-5.1) 01/12/17 07:45 Chloride 107 mmol/L (98-107) 01/12/17 07:45 Carbon Dioxide 27 mmol/L (21-32) 01/12/17 07:45 Anion Gap 9 (8-16) 01/12/17 07:45 BUN 13 mg/dL (7-18) 01/12/17 07:45 Creatinine 1.2 mg/dL (0.7-1.3) 01/12/17 07:45 Creat Clearance w eGFR > 60 (>60) 01/12/17 07:45 Random Glucose 98 mg/dL (74-106) 01/12/17 07:45 Calcium 8.4 mg/dL (8.5-10.1) L 01/12/17 07:45 Total Bilirubin 0.5 mg/dL (0.2-1.0) D 01/12/17 07:45 AST 10 U/L (15-37) L D 01/12/17 07:45 ALT 19 U/L (12-78) D 01/12/17 07:45 Alkaline Phosphatase 81 U/L (45-117) 01/12/17 07:45 Total Protein 6.8 g/dl (6.4-8.2) 01/12/17 07:45 Albumin 3.3 g/dl (3.4-5.0) L 01/12/17 07:45 Urine Color Yellow 01/11/17 09:49 Urine Appearance Clear 01/11/17 09:49 Urine pH 5.0 (5.0-8.0) 01/11/17 09:49 Ur Specific [place] 1.020 (1.005-1.025) 01/11/17 09:49 Urine Protein 2+ (NEGATIVE) H 01/11/17 09:49 Urine Glucose (UA) Negative (NEGATIVE) 01/11/17 09:49 Urine Ketones Negative (NEGATIVE) 01/11/17 09:49 Urine Blood Negative (NEGATIVE) 01/11/17 09:49 Urine Nitrite Negative (NEGATIVE) 01/11/17 09:49 Urine Bilirubin Negative (NEGATIVE) 01/11/17 09:49 Urine Urobilinogen Negative mg/dL (0.2-1.0) 01/11/17 09:49 Ur Leukocyte Esterase Negative (NEGATIVE) 01/11/17 09:49 Urine RBC <1 /hpf (0-3) 01/11/17 09:49 Urine WBC 1 /hpf (3-5) 01/11/17 09:49 Ur Epithelial Cells Rare /hpf (FEW) 01/11/17 09:49 Urine Mucus Rare 01/11/17 09:49 RPR Titer Nonreactive (NONREACTIVE) 01/12/17 07:45 Assessment: 01/12/17 13:21 WITHDRAWAL SX Plan: CONTINUE DETOX
[2017-01-12] MEDS: THIAMINE HCL 100 MG TABLET (FP) PO SCH (22:12)
[2017-01-13] MEDS: chlordiazePOXIDE HCL 25 MG CAPSULE PO SCH ×2 (05:05→10:08)
[2017-01-13] MEDS: GABAPENTIN 300 MG CAPSULE (FP) PO SCH ×3 (05:05→22:18)
[2017-01-13] MEDS: ENALAPRIL MALEATE 5 MG TABLET (FP) PO SCH (10:08)
[2017-01-13] MEDS: PRENATAL VITAMINS W/ FOLIC ACID TABLET (FP) PO SCH (10:08)
[2017-01-13] MEDS: ASPIRIN COATED 81 MG TABLET.EC PO SCH (10:08)
[2017-01-13] MEDS: METOPROLOL SUCCINATE 100 MG TAB.SR.24H (FP) PO SCH (10:09)
[2017-01-13] MEDS: CLOTRIMAZOLE/BETAMET DIPROP TOPICAL CREAM 45 GM TUBE TP SCH ×2 (10:09→22:19)
[2017-01-13] MEDS: NICOTINE 14 MG/24 HOURS TOPICAL PATCH TD SCH (10:09)
--- NOTE | 2017-01-13 10:48 | PN ---
[facility] CIWA - CIWA Score Nausea/Vomitin-No Nausea/No Vomiting Muscle Tremors: 3 Anxiety: 4-Mod. Anxious/Guarded Agitation: 4-Moderately Restless Paroxysmal Sweats: 1-Minimal Palms Moist Orientation: 0-Oriented Tacttile Disturbances: 3-Moderate Itch/Numb/Burn Auditory Disturbances: 0-None Visual Disturbances: 0-None Headache: 0-None Present CIWA-Ar Total Score: 15 S Progress Note (SOAP) Subjective: SLIGHT ANXIETY,SWEATS,FATIGUE. Objective: 01/13/17 10:47 Vital Signs 01/13/17 01/13/17 06:29 09:53 Temperature 97.7 F 97.4 F L Pulse Rate 94 H 100 H Respiratory 18 19 Rate Blood Pressure 121/77 122/71 Laboratory Last Values WBC 7.6 K/mm3 (4.0-10.0) 01/12/17 07:45 RBC 4.16 M/mm3 (4.00-5.60) 01/12/17 07:45 Hgb 13.0 GM/dL (11.7-16.9) 01/12/17 07:45 Hct 40.1 % (35.4-49) 01/12/17 07:45 MCV 96.3 fl (80-96) H 01/12/17 07:45 MCH 31.2 pg (25.7-33.7) 01/12/17 07:45 MCHC 32.4 g/dl (32.0-35.9) 01/12/17 07:45 RDW 13.9 % (11.9-15.9) 01/12/17 07:45 Plt Count 205 K/MM3 (134-434) 01/12/17 07:45 MPV 10.8 fl (7.5-11.1) 01/12/17 07:45 Sodium 143 mmol/L (136-145) 01/12/17 07:45 Potassium 3.9 mmol/L (3.5-5.1) 01/12/17 07:45 Chloride 107 mmol/L (98-107) 01/12/17 07:45 Carbon Dioxide 27 mmol/L (21-32) 01/12/17 07:45 Anion Gap 9 (8-16) 01/12/17 07:45 BUN 13 mg/dL (7-18) 01/12/17 07:45 Creatinine 1.2 mg/dL (0.7-1.3) 01/12/17 07:45 Creat Clearance w eGFR > 60 (>60) 01/12/17 07:45 Random Glucose 98 mg/dL (74-106) 01/12/17 07:45 Calcium 8.4 mg/dL (8.5-10.1) L 01/12/17 07:45 Total Bilirubin 0.5 mg/dL (0.2-1.0) D 01/12/17 07:45 AST 10 U/L (15-37) L D 01/12/17 07:45 ALT 19 U/L (12-78) D 01/12/17 07:45 Alkaline Phosphatase 81 U/L (45-117) 01/12/17 07:45 Total Protein 6.8 g/dl (6.4-8.2) 01/12/17 07:45 Albumin 3.3 g/dl (3.4-5.0) L 01/12/17 07:45 Urine Color Yellow 01/11/17 09:49 Urine Appearance Clear 01/11/17 09:49 Urine pH 5.0 (5.0-8.0) 01/11/17 09:49 Ur Specific [place] 1.020 (1.005-1.025) 01/11/17 09:49 Urine Protein 2+ (NEGATIVE) H 01/11/17 09:49 Urine Glucose (UA) Negative (NEGATIVE) 01/11/17 09:49 Urine Ketones Negative (NEGATIVE) 01/11/17 09:49 Urine Blood Negative (NEGATIVE) 01/11/17 09:49 Urine Nitrite Negative (NEGATIVE) 01/11/17 09:49 Urine Bilirubin Negative (NEGATIVE) 01/11/17 09:49 Urine Urobilinogen Negative mg/dL (0.2-1.0) 01/11/17 09:49 Ur Leukocyte Esterase Negative (NEGATIVE) 01/11/17 09:49 Urine RBC <1 /hpf (0-3) 01/11/17 09:49 Urine WBC 1 /hpf (3-5) 01/11/17 09:49 Ur Epithelial Cells Rare /hpf (FEW) 01/11/17 09:49 Urine Mucus Rare 01/11/17 09:49 RPR Titer Nonreactive (NONREACTIVE) 01/12/17 07:45 Assessment: 01/13/17 10:48 WITHDRAWAL SX Plan: CONTINUEN DETOX
[2017-01-13] MEDS: chlordiazePOXIDE 5 MG CAPSULE PO SCH ×2 (16:36→22:19)
[2017-01-13] MEDS: THIAMINE HCL 100 MG TABLET (FP) PO SCH (22:19)
[2017-01-14] MEDS: chlordiazePOXIDE 5 MG CAPSULE PO SCH ×2 (05:28→10:23)
[2017-01-14] MEDS: GABAPENTIN 300 MG CAPSULE (FP) PO SCH ×3 (05:28→22:24)
[2017-01-14] MEDS: CLOTRIMAZOLE/BETAMET DIPROP TOPICAL CREAM 45 GM TUBE TP SCH ×2 (10:22→22:24)
[2017-01-14] MEDS: PRENATAL VITAMINS W/ FOLIC ACID TABLET (FP) PO SCH (10:22)
[2017-01-14] MEDS: METOPROLOL SUCCINATE 100 MG TAB.SR.24H (FP) PO SCH (10:22)
[2017-01-14] MEDS: NICOTINE 14 MG/24 HOURS TOPICAL PATCH TD SCH (10:22)
[2017-01-14] MEDS: ENALAPRIL MALEATE 5 MG TABLET (FP) PO SCH (10:23)
[2017-01-14] MEDS: ASPIRIN COATED 81 MG TABLET.EC PO SCH (10:23)
--- NOTE | 2017-01-14 10:50 | PN ---
[facility] Progress Note (SOAP) Subjective: DECREASED ANXIETY,TREMORS. STATES NO DROWSINESS WITH LOWERED LIBRIUM TAPER. Objective: 01/14/17 10:50 Vital Signs Temperature 96 F L 01/14/17 09:22 Pulse Rate 79 01/14/17 09:22 Respiratory Rate 20 01/14/17 09:22 Blood Pressure 130/79 01/14/17 09:22 O2 Sat by Pulse Oximetry (%) Laboratory Last Values WBC 7.6 K/mm3 (4.0-10.0) 01/12/17 07:45 RBC 4.16 M/mm3 (4.00-5.60) 01/12/17 07:45 Hgb 13.0 GM/dL (11.7-16.9) 01/12/17 07:45 Hct 40.1 % (35.4-49) 01/12/17 07:45 MCV 96.3 fl (80-96) H 01/12/17 07:45 MCH 31.2 pg (25.7-33.7) 01/12/17 07:45 MCHC 32.4 g/dl (32.0-35.9) 01/12/17 07:45 RDW 13.9 % (11.9-15.9) 01/12/17 07:45 Plt Count 205 K/MM3 (134-434) 01/12/17 07:45 MPV 10.8 fl (7.5-11.1) 01/12/17 07:45 Sodium 143 mmol/L (136-145) 01/12/17 07:45 Potassium 3.9 mmol/L (3.5-5.1) 01/12/17 07:45 Chloride 107 mmol/L (98-107) 01/12/17 07:45 Carbon Dioxide 27 mmol/L (21-32) 01/12/17 07:45 Anion Gap 9 (8-16) 01/12/17 07:45 BUN 13 mg/dL (7-18) 01/12/17 07:45 Creatinine 1.2 mg/dL (0.7-1.3) 01/12/17 07:45 Creat Clearance w eGFR > 60 (>60) 01/12/17 07:45 Random Glucose 98 mg/dL (74-106) 01/12/17 07:45 Calcium 8.4 mg/dL (8.5-10.1) L 01/12/17 07:45 Total Bilirubin 0.5 mg/dL (0.2-1.0) D 01/12/17 07:45 AST 10 U/L (15-37) L D 01/12/17 07:45 ALT 19 U/L (12-78) D 01/12/17 07:45 Alkaline Phosphatase 81 U/L (45-117) 01/12/17 07:45 Total Protein 6.8 g/dl (6.4-8.2) 01/12/17 07:45 Albumin 3.3 g/dl (3.4-5.0) L 01/12/17 07:45 Urine Color Yellow 01/11/17 09:49 Urine Appearance Clear 01/11/17 09:49 Urine pH 5.0 (5.0-8.0) 01/11/17 09:49 Ur Specific [place] 1.020 (1.005-1.025) 01/11/17 09:49 Urine Protein 2+ (NEGATIVE) H 01/11/17 09:49 Urine Glucose (UA) Negative (NEGATIVE) 01/11/17 09:49 Urine Ketones Negative (NEGATIVE) 01/11/17 09:49 Urine Blood Negative (NEGATIVE) 01/11/17 09:49 Urine Nitrite Negative (NEGATIVE) 01/11/17 09:49 Urine Bilirubin Negative (NEGATIVE) 01/11/17 09:49 Urine Urobilinogen Negative mg/dL (0.2-1.0) 01/11/17 09:49 Ur Leukocyte Esterase Negative (NEGATIVE) 01/11/17 09:49 Urine RBC <1 /hpf (0-3) 01/11/17 09:49 Urine WBC 1 /hpf (3-5) 01/11/17 09:49 Ur Epithelial Cells Rare /hpf (FEW) 01/11/17 09:49 Urine Mucus Rare 01/11/17 09:49 RPR Titer Nonreactive (NONREACTIVE) 01/12/17 07:45 Assessment: 01/14/17 10:50 WITHDRAWAL SX Plan: CONTINUE DETOX
[2017-01-14] MEDS: chlordiazePOXIDE HCL 10 MG CAPSULE PO SCH ×2 (17:28→22:24)
[2017-01-14] MEDS: THIAMINE HCL 100 MG TABLET (FP) PO SCH (22:24)
[2017-01-15] MEDS: GABAPENTIN 300 MG CAPSULE (FP) PO SCH (05:12)
[2017-01-15] MEDS: chlordiazePOXIDE HCL 10 MG CAPSULE PO SCH (05:31)
[2017-01-15 06:26] VITALS: BP 128/84; PULSE 81; TEMP 97.2
--- NOTE | 2017-01-15 08:48 | DS ---
[facility] Detox Discharge Summary Admission Date: 01/11/17 Discharge Date: 01/15/17 - History Present History: Alcohol Dependence, Cocaine Dependence Additional Comments: DETOX COMPLETED. ALERT O X 3. NAD. PT REMINDED TO F/U WITH PCP DR DOMINIQUE SMITH AT [facility]. Pertinent Past History: HIV+ HTN OBESITY OA KNEE TINEA VESICOLOR - Physical Exam Results Vital Signs: Vital Signs Temperature 97.2 F L 01/15/17 06:25 Pulse Rate 81 01/15/17 06:25 Respiratory Rate 18 01/15/17 06:25 Blood Pressure 128/84 01/15/17 06:25 O2 Sat by Pulse Oximetry (%) Pertinent Admission Physical Exam Findings: WITHDRAWAL SX Laboratory Last Values WBC 7.6 K/mm3 (4.0-10.0) 01/12/17 07:45 RBC 4.16 M/mm3 (4.00-5.60) 01/12/17 07:45 Hgb 13.0 GM/dL (11.7-16.9) 01/12/17 07:45 Hct 40.1 % (35.4-49) 01/12/17 07:45 MCV 96.3 fl (80-96) H 01/12/17 07:45 MCH 31.2 pg (25.7-33.7) 01/12/17 07:45 MCHC 32.4 g/dl (32.0-35.9) 01/12/17 07:45 RDW 13.9 % (11.9-15.9) 01/12/17 07:45 Plt Count 205 K/MM3 (134-434) 01/12/17 07:45 MPV 10.8 fl (7.5-11.1) 01/12/17 07:45 Sodium 143 mmol/L (136-145) 01/12/17 07:45 Potassium 3.9 mmol/L (3.5-5.1) 01/12/17 07:45 Chloride 107 mmol/L (98-107) 01/12/17 07:45 Carbon Dioxide 27 mmol/L (21-32) 01/12/17 07:45 Anion Gap 9 (8-16) 01/12/17 07:45 BUN 13 mg/dL (7-18) 01/12/17 07:45 Creatinine 1.2 mg/dL (0.7-1.3) 01/12/17 07:45 Creat Clearance w eGFR > 60 (>60) 01/12/17 07:45 Random Glucose 98 mg/dL (74-106) 01/12/17 07:45 Calcium 8.4 mg/dL (8.5-10.1) L 01/12/17 07:45 Total Bilirubin 0.5 mg/dL (0.2-1.0) D 01/12/17 07:45 AST 10 U/L (15-37) L D 01/12/17 07:45 ALT 19 U/L (12-78) D 01/12/17 07:45 Alkaline Phosphatase 81 U/L (45-117) 01/12/17 07:45 Total Protein 6.8 g/dl (6.4-8.2) 01/12/17 07:45 Albumin 3.3 g/dl (3.4-5.0) L 01/12/17 07:45 Urine Color Yellow 01/11/17 09:49 Urine Appearance Clear 01/11/17 09:49 Urine pH 5.0 (5.0-8.0) 01/11/17 09:49 Ur Specific [place] 1.020 (1.005-1.025) 01/11/17 09:49 Urine Protein 2+ (NEGATIVE) H 01/11/17 09:49 Urine Glucose (UA) Negative (NEGATIVE) 01/11/17 09:49 Urine Ketones Negative (NEGATIVE) 01/11/17 09:49 Urine Blood Negative (NEGATIVE) 01/11/17 09:49 Urine Nitrite Negative (NEGATIVE) 01/11/17 09:49 Urine Bilirubin Negative (NEGATIVE) 01/11/17 09:49 Urine Urobilinogen Negative mg/dL (0.2-1.0) 01/11/17 09:49 Ur Leukocyte Esterase Negative (NEGATIVE) 01/11/17 09:49 Urine RBC <1 /hpf (0-3) 01/11/17 09:49 Urine WBC 1 /hpf (3-5) 01/11/17 09:49 Ur Epithelial Cells Rare /hpf (FEW) 01/11/17 09:49 Urine Mucus Rare 01/11/17 09:49 RPR Titer Nonreactive (NONREACTIVE) 01/12/17 07:45 - Treatment Hospital Course: Detox Protocol Followed, Detoxed Safely, Responded well, Discharged Condition Good - Medication Discharge Medications: Ambulatory Orders Metoprolol Succinate [Toprol XL -] 100 mg PO DAILY 12/29/13 Aspirin [Ecotrin] 81 mg PO DAILY 01/11/17 Enalapril Maleate [Vasotec -] 5 mg PO DAILY 01/11/17 Gabapentin [Neurontin] 600 mg PO TID 01/11/17 - Diagnosis (1) Cocaine dependence Status: Active (2) HTN (hypertension) Status: Chronic Qualifiers: Hypertension type: essential hypertension Qualified Code(s): I10 - Essential (primary) hypertension; I10 - Essential (primary) hypertension; I10 - Essential (primary) hypertension (3) Knee osteoarthritis Status: Chronic Qualifiers: Osteoarthritis type: unspecified Laterality: bilateral Qualified Code(s): M17.0 - Bilateral primary osteoarthritis of knee; M17.0 - Bilateral primary osteoarthritis of knee (4) Nicotine dependence Status: Acute Qualifiers: Nicotine product type: cigarettes Substance use status: in withdrawal Qualified Code(s): F17.213 - Nicotine dependence, cigarettes, with withdrawal; F17.213 - Nicotine dependence, cigarettes, with withdrawal (5) Obesity (BMI 30-39.9) Status: Chronic (6) Peripheral neuropathic pain Status: Chronic (7) Tinea versicolor Status: Chronic (8) HIV positive long-term non-progressor Status: Chronic (9) Alcohol dependence with uncomplicated withdrawal Status: Acute - AMA Did Patient Leave Against Medical Advice: No
[2017-01-15] MEDS: ASPIRIN COATED 81 MG TABLET.EC PO SCH (09:43)
[2017-01-15] MEDS: CLOTRIMAZOLE/BETAMET DIPROP TOPICAL CREAM 45 GM TUBE TP SCH (09:44)
[2017-01-15] MEDS: NICOTINE 14 MG/24 HOURS TOPICAL PATCH TD SCH (09:44)
[2017-01-15] MEDS: PRENATAL VITAMINS W/ FOLIC ACID TABLET (FP) PO SCH (09:44)
[2017-01-15] MEDS: ENALAPRIL MALEATE 5 MG TABLET (FP) PO SCH (09:44)
[2017-01-15] MEDS: METOPROLOL SUCCINATE 100 MG TAB.SR.24H (FP) PO SCH (09:44)
== END 2017-01-15 08:59 | disposition home or self-care (01) | DRG 774 ==
LOC: YASAS 09:44 → Y3N 12:14
PROVIDERS: ADMIT Internal Medicine; ATTEND Internal Medicine
PROC: HZ2ZZZZ Detoxification Services for Substance Abuse Treatment (ICD-10-PCS; principal; 2017-01-11)
DX: F10.230 Alcohol dependence with withdrawal, uncomplicated (principal); F14.20 Cocaine dependence, uncomplicated; F17.213 Nicotine dependence, cigarettes, with withdrawal; G47.00 Insomnia, unspecified; I10 Essential (primary) hypertension; Z21 Asymptomatic human immunodeficiency virus [HIV] infection status; G58.8 Other specified mononeuropathies; M17.0 Bilateral primary osteoarthritis of knee; B36.0 Pityriasis versicolor; E66.9 Obesity, unspecified; Z68.36 Body mass index [BMI] 36.0-36.9, adult
CPT/HCPCS: 36415; 80053; 81003; 81015; 85027; 86593; 90688; 93005; 93010; G0008

== ENCOUNTER 2017-07-05 11:13 | Inpatient (IN) | payer OTHER ==
[2017-07-05 12:04] VITALS: BMI 36.6
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
[2017-07-05] MEDS ORDERED: P-EPHED 60MG/TRIPROLIDI 2.5MG TABLET PO PRN (12:42)
[2017-07-05] MEDS ORDERED: MENTHOL/PHENOL 1 EACH UD MM PRN (12:42)
[2017-07-05] MEDS ORDERED: MAG HYDROX/AL HYDROX/SIMETH 30 ML UNIT-DOSE CUP PO PRN (12:42)
[2017-07-05] MEDS ORDERED: MAGNESIUM CITRATE 300 ML BOTTLE PO PRN (12:42)
[2017-07-05] MEDS ORDERED: hydrOXYzine PAMOATE 25 MG CAPSULE (FP) PO PRN (12:42)
[2017-07-05] MEDS ORDERED: chlordiazePOXIDE HCL 25 MG CAPSULE PO PRN (12:42)
[2017-07-05] MEDS ORDERED: LOPERAMIDE HCL 2 MG CAPSULE PO PRN (12:42)
[2017-07-05] MEDS ORDERED: guaiFENesin/D-METHORPHAN HB 10 ML UNIT-DOSE CUPS PO PRN (12:42)
[2017-07-05] MEDS ORDERED: ACETAMINOPHEN 325 MG TABLET (FP) PO PRN (12:42)
[2017-07-05] MEDS ORDERED: MAGNESIUM HYDROX 2400MG/30ML ORAL SUSPENSION 30 ML CUP PO PRN (12:42)
[2017-07-05] MEDS ORDERED: chlordiazePOXIDE HCL 25 MG CAPSULE PO ONE (12:42)
[2017-07-05] MEDS: GABAPENTIN 300 MG CAPSULE (FP) PO SCH ×2 (13:57→22:41)
[2017-07-05] MEDS: chlordiazePOXIDE HCL 25 MG CAPSULE PO SCH ×2 (16:58→22:41)
[2017-07-05 17:38] LABS: URINE APPEARANCE CLEAR; URINE BILIRUBIN NEGATIVE (<2.0 mg/dL); URINE BLOOD NEGATIVE (NEGATIVE); URINE COLOR YELLOW; URINE GLUCOSE (UA) NEGATIVE (NEGATIVE); URINE KETONE NEGATIVE (NEGATIVE); URINE LEUK ESTERASE NEGATIVE (NEGATIVE); URINE NITRITE NEGATIVE (NEGATIVE); URINE UROBILINOGEN 4.0 E.U/dl mg/dL (0.2-1.0)
[2017-07-05 17:49] LABS: URINE PROTEIN 2+ (NEGATIVE)
[2017-07-05 18:34] LABS: CALCIUM OXALATE CRYSTALS RARE /hpf (NONE SEEN)
[2017-07-05] MEDS ORDERED: MELATONIN 5 MG TABLETS PO PRN (22:00)
[2017-07-05] MEDS: THIAMINE HCL 100 MG TABLET (FP) PO SCH (22:41)
[2017-07-06] MEDS: chlordiazePOXIDE HCL 25 MG CAPSULE PO SCH ×4 (05:26→22:31)
[2017-07-06] MEDS: GABAPENTIN 300 MG CAPSULE (FP) PO SCH ×3 (05:27→22:31)
--- NOTE | 2017-07-06 09:22 | EKG ---
Test Reason : Blood Pressure : / mmHG Vent. Rate : 092 BPM Atrial Rate : 092 BPM P-R Int : 118 ms QRS Dur : 106 ms QT Int : 364 ms P-R-T Axes : 071 072 055 degrees QTc Int : 450 ms NORMAL SINUS RHYTHM NONSPECIFIC ST ABNORMALITY ABNORMAL ECG WHEN COMPARED WITH ECG OF 11-JAN-2017 13:52, T WAVE AMPLITUDE HAS DECREASED IN LATERAL LEADS Confirmed by EVERETT GIL, SALINAS ([id number]) on 07/06/2017 9:22:15 AM Referred By: Confirmed By:SALINAS FLOYD MD
[2017-07-06 10:03] LABS: ALBUMIN 3.6 g/dl (3.4-5.0); ANION GAP 6 (8-16); BILIRUBIN,TOTAL 0.3 mg/dL (0.2-1.0); BLOOD UREA NITROGEN 14 mg/dL (7-18); CALCIUM 8.5 mg/dL (8.5-10.1); CHLORIDE 107 mmol/L (98-107); CO2 28 mmol/L (21-32); GLUCOSE,RANDOM 120 mg/dL (74-106); HEMATOCRIT 42.7 % (35.4-49); HEMOGLOBIN 14.5 GM/dL (11.7-16.9); MCH 32.4 pg (25.7-33.7); MEAN CELL VOLUME 95.3 fl (80-96); MEAN PLT VOLUME 10.3 fl (7.5-11.1); PLATELET COUNT 241 K/MM3 (134-434); RBC 4.48 M/mm3 (4.00-5.60); RDW 14.2 % (11.9-15.9); SGPT/ALT 24 U/L (12-78); SODIUM 141 mmol/L (136-145)
[2017-07-06 10:04] LABS: ALK PHOS 92 U/L (45-117); CREATININE 1.4 mg/dL (0.7-1.3); SGOT/AST 21 U/L (15-37); TOT PROT 7.8 g/dl (6.4-8.2)
[2017-07-06] MEDS: ASPIRIN COATED 81 MG TABLET.EC PO SCH (10:37)
[2017-07-06] MEDS: amLODIPine BESYLATE 10 MG TABLET (FP) PO SCH (10:37)
[2017-07-06] MEDS: PRENATAL VITAMINS W/ FOLIC ACID TABLET (FP) PO SCH (10:37)
--- NOTE | 2017-07-06 16:15 | PN ---
S CIWA - CIWA Score Nausea/Vomitin Muscle Tremors: 3 Anxiety: 3 Agitation: 3 Paroxysmal Sweats: 2 Orientation: 0-Oriented Tacttile Disturbances: 1-Very Mild Itch/Numbness Auditory Disturbances: 0-None Visual Disturbances: 0-None Headache: 2-Mild CIWA-Ar Total Score: 17 S Progress Note (SOAP) Subjective: Tremor, nausea, stomach ache, interrupted sleep Objective: 07/06/17 16:12 Last Vital Signs Temp Pulse Resp BP Pulse Ox 98.4 F 91 H 18 107/75 07/06/17 14:36 07/06/17 14:36 07/06/17 14:36 07/06/17 14:36 Laboratory Tests 07/05/17 07/06/17 07/06/17 17:00 07:30 07:30 WBC 10.0 D RBC 4.48 Hgb 14.5 D Hct 42.7 MCV 95.3 MCH 32.4 MCHC 34.0 RDW 14.2 Plt Count 241 MPV 10.3 Sodium 141 Potassium 4.0 Chloride 107 Carbon Dioxide 28 Anion Gap 6 L BUN 14 Creatinine 1.4 H Creat Clearance w eGFR 52.81 Random Glucose 120 H D Calcium 8.5 Total Bilirubin 0.3 D AST 21 D ALT 24 D Alkaline Phosphatase 92 Total Protein 7.8 Albumin 3.6 Urine Color Yellow Urine Appearance Clear Urine pH 6.0 Ur Specific [place] 1.016 Urine Protein 2+ H Urine Glucose (UA) Negative Urine Ketones Negative Urine Blood Negative Urine Nitrite Negative Urine Bilirubin Negative Urine Urobilinogen 4.0 e.u/dl Ur Leukocyte Esterase Negative Urine WBC (Auto) 6 Urine RBC (Auto) 17 Calcium Oxalate Crystal Rare RPR Titer 07/06/17 07:30 WBC RBC Hgb Hct MCV MCH MCHC RDW Plt Count MPV Sodium Potassium Chloride Carbon Dioxide Anion Gap BUN Creatinine Creat Clearance w eGFR Random Glucose Calcium Total Bilirubin AST ALT Alkaline Phosphatase Total Protein Albumin Urine Color Urine Appearance Urine pH Ur Specific [place] Urine Protein Urine Glucose (UA) Urine Ketones Urine Blood Urine Nitrite Urine Bilirubin Urine Urobilinogen Ur Leukocyte Esterase Urine WBC (Auto) Urine RBC (Auto) Calcium Oxalate Crystal RPR Titer Nonreactive Labs noted: prerenal azotemia and proteinuria Assessment: 07/06/17 16:13 Withdrawal symptoms Noted with prerenal azotemia and proteinuria Plan: Continue detox Prerenal azotemia: encouraged to drink more water, repeat BMP Proteinuria: repeat UA
[2017-07-06] MEDS: THIAMINE HCL 100 MG TABLET (FP) PO SCH (22:31)
[2017-07-07] MEDS: chlordiazePOXIDE HCL 25 MG CAPSULE PO SCH ×2 (05:41→10:20)
[2017-07-07] MEDS: GABAPENTIN 300 MG CAPSULE (FP) PO SCH ×3 (07:00→22:03)
[2017-07-07] MEDS: PRENATAL VITAMINS W/ FOLIC ACID TABLET (FP) PO SCH (10:20)
[2017-07-07] MEDS: amLODIPine BESYLATE 10 MG TABLET (FP) PO SCH (10:20)
[2017-07-07] MEDS: ASPIRIN COATED 81 MG TABLET.EC PO SCH (10:20)
--- NOTE | 2017-07-07 11:58 | PN ---
[facility] CIWA - CIWA Score Nausea/Vomitin-No Nausea/No Vomiting Muscle Tremors: 4-Moderate,w/Arms Extend Anxiety: 4-Mod. Anxious/Guarded Agitation: 4-Moderately Restless Paroxysmal Sweats: 1-Minimal Palms Moist Orientation: 0-Oriented Tacttile Disturbances: 0-None Auditory Disturbances: 0-None Visual Disturbances: 0-None Headache: 0-None Present CIWA-Ar Total Score: 13 S Progress Note (SOAP) Subjective: ANXIETY,TREMORS, SWEATS,INTERMITTENT SLEEP. Objective: 07/08/17 12:44 Vital Signs Temperature 96.7 F L 07/08/17 09:54 Pulse Rate 85 07/08/17 09:54 Respiratory Rate 20 07/08/17 09:54 Blood Pressure 126/68 07/08/17 09:54 O2 Sat by Pulse Oximetry (%) Laboratory Last Values WBC 10.0 K/mm3 (4.0-10.0) D 07/06/17 07:30 RBC 4.48 M/mm3 (4.00-5.60) 07/06/17 07:30 Hgb 14.5 GM/dL (11.7-16.9) D 07/06/17 07:30 Hct 42.7 % (35.4-49) 07/06/17 07:30 MCV 95.3 fl (80-96) 07/06/17 07:30 MCH 32.4 pg (25.7-33.7) 07/06/17 07:30 MCHC 34.0 g/dl (32.0-35.9) 07/06/17 07:30 RDW 14.2 % (11.9-15.9) 07/06/17 07:30 Plt Count 241 K/MM3 (134-434) 07/06/17 07:30 MPV 10.3 fl (7.5-11.1) 07/06/17 07:30 Sodium 141 mmol/L (136-145) 07/06/17 07:30 Potassium 4.0 mmol/L (3.5-5.1) 07/06/17 07:30 Chloride 107 mmol/L (98-107) 07/06/17 07:30 Carbon Dioxide 28 mmol/L (21-32) 07/06/17 07:30 Anion Gap 6 (8-16) L 07/06/17 07:30 BUN 14 mg/dL (7-18) 07/06/17 07:30 Creatinine 1.4 mg/dL (0.7-1.3) H 07/06/17 07:30 Creat Clearance w eGFR 52.81 (>60) 07/06/17 07:30 POC Glucometer 127 UNITS (80-120) 07/08/17 05:49 Random Glucose 120 mg/dL (74-106) H D 07/06/17 07:30 Calcium 8.5 mg/dL (8.5-10.1) 07/06/17 07:30 Total Bilirubin 0.3 mg/dL (0.2-1.0) D 07/06/17 07:30 AST 21 U/L (15-37) D 07/06/17 07:30 ALT 24 U/L (12-78) D 07/06/17 07:30 Alkaline Phosphatase 92 U/L (45-117) 07/06/17 07:30 Total Protein 7.8 g/dl (6.4-8.2) 07/06/17 07:30 Albumin 3.6 g/dl (3.4-5.0) 07/06/17 07:30 Urine Color L[place] 07/07/17 09:15 Urine Appearance Clear 07/07/17 09:15 Urine pH 5.0 (5.0-8.0) 07/07/17 09:15 Ur Specific [place] 1.014 (1.001-1.035) 07/07/17 09:15 Urine Protein 1+ (NEGATIVE) H 07/07/17 09:15 Urine Glucose (UA) Negative (NEGATIVE) 07/07/17 09:15 Urine Ketones Negative (NEGATIVE) 07/07/17 09:15 Urine Blood Negative (NEGATIVE) 07/07/17 09:15 Urine Nitrite Negative (NEGATIVE) 07/07/17 09:15 Urine Bilirubin Negative (<2.0 mg/dL) 07/07/17 09:15 Urine Urobilinogen Negative mg/dL (0.2-1.0) 07/07/17 09:15 Ur Leukocyte Esterase Negative (NEGATIVE) 07/07/17 09:15 Urine WBC (Auto) 1 /hpf (3-5) 07/07/17 09:15 Urine RBC (Auto) <1 /hpf (0-3) 07/07/17 09:15 Ur Epithelial Cells Rare /HPF (FEW) 07/07/17 09:15 Calcium Oxalate Crystal Rare /hpf (NONE SEEN) 07/05/17 17:00 Hyaline Casts 1 /lpf 07/07/17 09:15 Urine Mucus Rare 07/07/17 09:15 RPR Titer Nonreactive (NONREACTIVE) 07/06/17 07:30 Assessment: 07/08/17 12:44 WITHDRAWAL SX Plan: CONTINUE DETOX
[2017-07-07 16:32] LABS: URINE APPEARANCE CLEAR; URINE BILIRUBIN NEGATIVE (<2.0 mg/dL); URINE BLOOD NEGATIVE (NEGATIVE); URINE COLOR LTYELLOW; URINE GLUCOSE (UA) NEGATIVE (NEGATIVE); URINE KETONE NEGATIVE (NEGATIVE); URINE LEUK ESTERASE NEGATIVE (NEGATIVE); URINE NITRITE NEGATIVE (NEGATIVE); URINE UROBILINOGEN NEGATIVE mg/dL (0.2-1.0)
[2017-07-07] MEDS: chlordiazePOXIDE 5 MG CAPSULE PO SCH ×2 (16:36→22:03)
[2017-07-07 16:57] LABS: URINE PROTEIN 1+ (NEGATIVE)
[2017-07-07 16:59] LABS: EPI CELLS RARE /HPF (FEW); URINE HYALINE CAST 1 /lpf; URINE MUCUS RARE
[2017-07-07] MEDS: THIAMINE HCL 100 MG TABLET (FP) PO SCH (22:03)
[2017-07-08] MEDS: GABAPENTIN 300 MG CAPSULE (FP) PO SCH ×3 (05:50→22:44)
[2017-07-08] MEDS: chlordiazePOXIDE 5 MG CAPSULE PO SCH ×2 (05:50→10:27)
[2017-07-08] MEDS: amLODIPine BESYLATE 10 MG TABLET (FP) PO SCH (10:27)
[2017-07-08] MEDS: ASPIRIN COATED 81 MG TABLET.EC PO SCH (10:27)
[2017-07-08] MEDS: PRENATAL VITAMINS W/ FOLIC ACID TABLET (FP) PO SCH (10:27)
--- NOTE | 2017-07-08 12:43 | PN ---
S Progress Note (SOAP) Subjective: ANXIETY,INTERMITTENT SLEEP. ALERT O X 3. OOB WITH STEADY GAIT. Objective: 07/08/17 12:40 Vital Signs Temperature 96.7 F L 07/08/17 09:54 Pulse Rate 85 07/08/17 09:54 Respiratory Rate 20 07/08/17 09:54 Blood Pressure 126/68 07/08/17 09:54 O2 Sat by Pulse Oximetry (%) Laboratory Last Values WBC 10.0 K/mm3 (4.0-10.0) D 07/06/17 07:30 RBC 4.48 M/mm3 (4.00-5.60) 07/06/17 07:30 Hgb 14.5 GM/dL (11.7-16.9) D 07/06/17 07:30 Hct 42.7 % (35.4-49) 07/06/17 07:30 MCV 95.3 fl (80-96) 07/06/17 07:30 MCH 32.4 pg (25.7-33.7) 07/06/17 07:30 MCHC 34.0 g/dl (32.0-35.9) 07/06/17 07:30 RDW 14.2 % (11.9-15.9) 07/06/17 07:30 Plt Count 241 K/MM3 (134-434) 07/06/17 07:30 MPV 10.3 fl (7.5-11.1) 07/06/17 07:30 Sodium 141 mmol/L (136-145) 07/06/17 07:30 Potassium 4.0 mmol/L (3.5-5.1) 07/06/17 07:30 Chloride 107 mmol/L (98-107) 07/06/17 07:30 Carbon Dioxide 28 mmol/L (21-32) 07/06/17 07:30 Anion Gap 6 (8-16) L 07/06/17 07:30 BUN 14 mg/dL (7-18) 07/06/17 07:30 Creatinine 1.4 mg/dL (0.7-1.3) H 07/06/17 07:30 Creat Clearance w eGFR 52.81 (>60) 07/06/17 07:30 POC Glucometer 127 UNITS (80-120) 07/08/17 05:49 Random Glucose 120 mg/dL (74-106) H D 07/06/17 07:30 Calcium 8.5 mg/dL (8.5-10.1) 07/06/17 07:30 Total Bilirubin 0.3 mg/dL (0.2-1.0) D 07/06/17 07:30 AST 21 U/L (15-37) D 07/06/17 07:30 ALT 24 U/L (12-78) D 07/06/17 07:30 Alkaline Phosphatase 92 U/L (45-117) 07/06/17 07:30 Total Protein 7.8 g/dl (6.4-8.2) 07/06/17 07:30 Albumin 3.6 g/dl (3.4-5.0) 07/06/17 07:30 Urine Color Ltyellow 07/07/17 09:15 Urine Appearance Clear 07/07/17 09:15 Urine pH 5.0 (5.0-8.0) 07/07/17 09:15 Ur Specific Ceres 1.014 (1.001-1.035) 07/07/17 09:15 Urine Protein 1+ (NEGATIVE) H 07/07/17 09:15 Urine Glucose (UA) Negative (NEGATIVE) 07/07/17 09:15 Urine Ketones Negative (NEGATIVE) 07/07/17 09:15 Urine Blood Negative (NEGATIVE) 07/07/17 09:15 Urine Nitrite Negative (NEGATIVE) 07/07/17 09:15 Urine Bilirubin Negative (<2.0 mg/dL) 07/07/17 09:15 Urine Urobilinogen Negative mg/dL (0.2-1.0) 07/07/17 09:15 Ur Leukocyte Esterase Negative (NEGATIVE) 07/07/17 09:15 Urine WBC (Auto) 1 /hpf (3-5) 07/07/17 09:15 Urine RBC (Auto) <1 /hpf (0-3) 07/07/17 09:15 Ur Epithelial Cells Rare /HPF (FEW) 07/07/17 09:15 Calcium Oxalate Crystal Rare /hpf (NONE SEEN) 07/05/17 17:00 Hyaline Casts 1 /lpf 07/07/17 09:15 Urine Mucus Rare 07/07/17 09:15 RPR Titer Nonreactive (NONREACTIVE) 07/06/17 07:30 Assessment: 07/08/17 12:40 WITHDRAWAL SX Plan: CONTINUE DETOX
[2017-07-08] MEDS: chlordiazePOXIDE HCL 10 MG CAPSULE PO SCH ×2 (17:40→22:44)
[2017-07-08] MEDS: THIAMINE HCL 100 MG TABLET (FP) PO SCH (22:44)
[2017-07-09] MEDS: GABAPENTIN 300 MG CAPSULE (FP) PO SCH (05:50)
[2017-07-09] MEDS: chlordiazePOXIDE HCL 10 MG CAPSULE PO SCH (05:50)
[2017-07-09 06:37] VITALS: BP 126/75; PULSE 80; TEMP 96.7
--- NOTE | 2017-07-09 12:17 | DS ---
[facility] Detox Discharge Summary Admission Date: 07/05/17 Discharge Date: 07/09/17 - History Present History: Alcohol Dependence, Cocaine Dependence Additional Comments: DETOX COMPLETED TODAY. ALERT O X 3. NAD. PT REPORTS HE HAS PRIMARY CARE WITH DR. LANDAVERDE AT [facility] AT [facility] AND WILL BE FOLLOWING UP WITH HIM FOR HYPERGLYCEMIA WORKUP AFTER DISCHARGE. Pertinent Past History: PLEASE SEE DX BELOW - Physical Exam Results Vital Signs: Vital Signs Temperature 96.7 F L 07/09/17 06:36 Pulse Rate 80 07/09/17 06:36 Respiratory Rate 18 07/09/17 06:36 Blood Pressure 126/75 07/09/17 06:36 O2 Sat by Pulse Oximetry (%) Pertinent Admission Physical Exam Findings: WITHDRAWAL SX Laboratory Last Values WBC 10.0 K/mm3 (4.0-10.0) D 07/06/17 07:30 RBC 4.48 M/mm3 (4.00-5.60) 07/06/17 07:30 Hgb 14.5 GM/dL (11.7-16.9) D 07/06/17 07:30 Hct 42.7 % (35.4-49) 07/06/17 07:30 MCV 95.3 fl (80-96) 07/06/17 07:30 MCH 32.4 pg (25.7-33.7) 07/06/17 07:30 MCHC 34.0 g/dl (32.0-35.9) 07/06/17 07:30 RDW 14.2 % (11.9-15.9) 07/06/17 07:30 Plt Count 241 K/MM3 (134-434) 07/06/17 07:30 MPV 10.3 fl (7.5-11.1) 07/06/17 07:30 Sodium 141 mmol/L (136-145) 07/06/17 07:30 Potassium 4.0 mmol/L (3.5-5.1) 07/06/17 07:30 Chloride 107 mmol/L (98-107) 07/06/17 07:30 Carbon Dioxide 28 mmol/L (21-32) 07/06/17 07:30 Anion Gap 6 (8-16) L 07/06/17 07:30 BUN 14 mg/dL (7-18) 07/06/17 07:30 Creatinine 1.4 mg/dL (0.7-1.3) H 07/06/17 07:30 Creat Clearance w eGFR 52.81 (>60) 07/06/17 07:30 POC Glucometer 161 UNITS (80-120) 07/09/17 05:52 Random Glucose 120 mg/dL (74-106) H D 07/06/17 07:30 Calcium 8.5 mg/dL (8.5-10.1) 07/06/17 07:30 Total Bilirubin 0.3 mg/dL (0.2-1.0) D 07/06/17 07:30 AST 21 U/L (15-37) D 07/06/17 07:30 ALT 24 U/L (12-78) D 07/06/17 07:30 Alkaline Phosphatase 92 U/L (45-117) 07/06/17 07:30 Total Protein 7.8 g/dl (6.4-8.2) 07/06/17 07:30 Albumin 3.6 g/dl (3.4-5.0) 07/06/17 07:30 Urine Color Ltyellow 07/07/17 09:15 Urine Appearance Clear 07/07/17 09:15 Urine pH 5.0 (5.0-8.0) 07/07/17 09:15 Ur Specific [place] 1.014 (1.001-1.035) 07/07/17 09:15 Urine Protein 1+ (NEGATIVE) H 07/07/17 09:15 Urine Glucose (UA) Negative (NEGATIVE) 07/07/17 09:15 Urine Ketones Negative (NEGATIVE) 07/07/17 09:15 Urine Blood Negative (NEGATIVE) 07/07/17 09:15 Urine Nitrite Negative (NEGATIVE) 07/07/17 09:15 Urine Bilirubin Negative (<2.0 mg/dL) 07/07/17 09:15 Urine Urobilinogen Negative mg/dL (0.2-1.0) 07/07/17 09:15 Ur Leukocyte Esterase Negative (NEGATIVE) 07/07/17 09:15 Urine WBC (Auto) 1 /hpf (3-5) 07/07/17 09:15 Urine RBC (Auto) <1 /hpf (0-3) 07/07/17 09:15 Ur Epithelial Cells Rare /HPF (FEW) 07/07/17 09:15 Calcium Oxalate Crystal Rare /hpf (NONE SEEN) 07/05/17 17:00 Hyaline Casts 1 /lpf 07/07/17 09:15 Urine Mucus Rare 07/07/17 09:15 RPR Titer Nonreactive (NONREACTIVE) 07/06/17 07:30 Laboratory Tests 07/05/17 07/06/17 07/06/17 17:00 07:30 07:30 WBC 10.0 D RBC 4.48 Hgb 14.5 D Hct 42.7 MCV 95.3 MCH 32.4 MCHC 34.0 RDW 14.2 Plt Count 241 MPV 10.3 Sodium 141 Potassium 4.0 Chloride 107 Carbon Dioxide 28 Anion Gap 6 L BUN 14 Creatinine 1.4 H Creat Clearance w eGFR 52.81 POC Glucometer Random Glucose 120 H D Calcium 8.5 Total Bilirubin 0.3 D AST 21 D ALT 24 D Alkaline Phosphatase 92 Total Protein 7.8 Albumin 3.6 Urine Color Yellow Urine Appearance Clear Urine pH 6.0 Ur Specific [place] 1.016 Urine Protein 2+ H Urine Glucose (UA) Negative Urine Ketones Negative Urine Blood Negative Urine Nitrite Negative Urine Bilirubin Negative Urine Urobilinogen 4.0 e.u/dl Ur Leukocyte Esterase Negative Urine WBC (Auto) 6 Urine RBC (Auto) 17 Ur Epithelial Cells Calcium Oxalate Crystal Rare Hyaline Casts Urine Mucus RPR Titer 07/06/17 07/07/17 07/08/17 07:30 09:15 05:49 WBC RBC Hgb Hct MCV MCH MCHC RDW Plt Count MPV Sodium Potassium Chloride Carbon Dioxide Anion Gap BUN Creatinine Creat Clearance w eGFR POC Glucometer 127 Random Glucose Calcium Total Bilirubin AST ALT Alkaline Phosphatase Total Protein Albumin Urine Color Ltyellow Urine Appearance Clear Urine pH 5.0 Ur Specific [place] 1.014 Urine Protein 1+ H Urine Glucose (UA) Negative Urine Ketones Negative Urine Blood Negative Urine Nitrite Negative Urine Bilirubin Negative Urine Urobilinogen Negative Ur Leukocyte Esterase Negative Urine WBC (Auto) 1 Urine RBC (Auto) <1 Ur Epithelial Cells Rare Calcium Oxalate Crystal Hyaline Casts 1 Urine Mucus Rare RPR Titer Nonreactive 07/09/17 05:52 WBC RBC Hgb Hct MCV MCH MCHC RDW Plt Count MPV Sodium Potassium Chloride Carbon Dioxide Anion Gap BUN Creatinine Creat Clearance w eGFR POC Glucometer 161 Random Glucose Calcium Total Bilirubin AST ALT Alkaline Phosphatase Total Protein Albumin Urine Color Urine Appearance Urine pH Ur Specific [place] Urine Protein Urine Glucose (UA) Urine Ketones Urine Blood Urine Nitrite Urine Bilirubin Urine Urobilinogen Ur Leukocyte Esterase Urine WBC (Auto) Urine RBC (Auto) Ur Epithelial Cells Calcium Oxalate Crystal Hyaline Casts Urine Mucus RPR Titer LAB RESULTS HAVE BEEN GIVEN TO PT FOR FOLLOW UP WITH PMD DR. LANDAVERDE TO WORK UP ELEVATED BLOOD SUGAR LEVELS. - Treatment Hospital Course: Detox Protocol Followed, Detoxed Safely, Responded well, Discharged Condition Good - Medication Discharge Medications: Ambulatory Orders Metoprolol Succinate [Toprol XL -] 100 mg PO DAILY 12/29/13 Aspirin [Ecotrin] 81 mg PO DAILY 01/11/17 Gabapentin [Neurontin] 600 mg PO TID 01/11/17 Amlodipine Besylate [Norvasc -] 10 mg PO DAILY 07/05/17 - Diagnosis (1) Alcohol dependence with uncomplicated withdrawal Status: Acute (2) HTN (hypertension) Status: Chronic Qualifiers: Hypertension type: essential hypertension Qualified Code(s): I10 - Essential (primary) hypertension (3) Knee osteoarthritis Status: Chronic Qualifiers: Osteoarthritis type: unspecified Laterality: bilateral Qualified Code(s) : M17.0 - Bilateral primary osteoarthritis of knee (4) Nicotine dependence Status: Acute Qualifiers: Nicotine product type: cigarettes Substance use status: in withdrawal Qualified Code(s): F17.213 - Nicotine dependence, cigarettes, with withdrawal (5) Cocaine dependence Status: Acute (6) HIV positive long-term non-progressor Status: Chronic (7) Insomnia Status: Acute Qualifiers: Insomnia type: alcohol-induced Qualified Code(s): F10.982 - Alcohol use, unspecified with alcohol-induced sleep disorder - AMA Did Patient Leave Against Medical Advice: No
== END 2017-07-09 09:05 | disposition home or self-care (01) | DRG 774 ==
LOC: YASAS 11:13 → Y3N 12:34
PROVIDERS: ADMIT Internal Medicine; ATTEND Internal Medicine
PROC: HZ2ZZZZ Detoxification Services for Substance Abuse Treatment (ICD-10-PCS; principal; 2017-07-05)
DX: F10.230 Alcohol dependence with withdrawal, uncomplicated (principal); F14.20 Cocaine dependence, uncomplicated; F17.213 Nicotine dependence, cigarettes, with withdrawal; I10 Essential (primary) hypertension; G47.00 Insomnia, unspecified; G62.9 Polyneuropathy, unspecified; Z21 Asymptomatic human immunodeficiency virus [HIV] infection status; M17.0 Bilateral primary osteoarthritis of knee; R80.9 Proteinuria, unspecified; R79.89 Other specified abnormal findings of blood chemistry; E66.9 Obesity, unspecified; Z68.36 Body mass index [BMI] 36.0-36.9, adult; Z91.013 Allergy to seafood; Z88.0 Allergy status to penicillin; Z88.2 Allergy status to sulfonamides
CPT/HCPCS: 36415; 80053; 81003; 81015; 82962; 85027; 86593; 93005; 93010

== ENCOUNTER 2017-10-11 09:34 | Inpatient (IN) | payer OTHER ==
[2017-10-11 09:48] VITALS: BMI 36.6
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
[2017-10-11] MEDS ORDERED: MAGNESIUM HYDROX 2400MG/30ML ORAL SUSPENSION 30 ML CUP PO PRN (11:08)
[2017-10-11] MEDS ORDERED: MENTHOL/PHENOL 1 EACH UD MM PRN (11:08)
[2017-10-11] MEDS ORDERED: P-EPHED 60MG/TRIPROLIDI 2.5MG TABLET PO PRN (11:08)
[2017-10-11] MEDS ORDERED: ACETAMINOPHEN 325 MG TABLET (FP) PO PRN (11:08)
[2017-10-11] MEDS ORDERED: MAGNESIUM CITRATE 300 ML BOTTLE PO PRN (11:08)
[2017-10-11] MEDS ORDERED: chlordiazePOXIDE HCL 25 MG CAPSULE PO PRN (11:08)
[2017-10-11] MEDS ORDERED: guaiFENesin/D-METHORPHAN HB 10 ML UNIT-DOSE CUPS PO PRN (11:08)
[2017-10-11] MEDS ORDERED: hydrOXYzine PAMOATE 25 MG CAPSULE (FP) PO PRN (11:08)
[2017-10-11] MEDS ORDERED: LOPERAMIDE HCL 2 MG CAPSULE PO PRN (11:08)
[2017-10-11] MEDS ORDERED: MAG HYDROX/AL HYDROX/SIMETH 30 ML UNIT-DOSE CUP PO PRN (11:08)
[2017-10-11] MEDS ORDERED: chlordiazePOXIDE HCL 25 MG CAPSULE PO ONE (11:30)
--- NOTE | 2017-10-11 14:43 | EKG ---
Test Reason : Blood Pressure : / mmHG Vent. Rate : 074 BPM Atrial Rate : 074 BPM P-R Int : 124 ms QRS Dur : 100 ms QT Int : 378 ms P-R-T Axes : 068 068 050 degrees QTc Int : 419 ms NORMAL SINUS RHYTHM MINIMAL VOLTAGE CRITERIA FOR LVH, MAY BE NORMAL VARIANT BORDERLINE ECG WHEN COMPARED WITH ECG OF 05-JUL-2017 14:10, NO SIGNIFICANT CHANGE WAS FOUND Confirmed by Mal Larson ([id number]) on 10/11/2017 2:42:44 PM Referred By: Ted Andujar Confirmed By:Mal Larson
[2017-10-11] MEDS: prednisoLONE ACETATE 1% OPHTH SUSP 5 ML BOTTLE OU SCH ×3 (16:51→22:07)
[2017-10-11] MEDS: chlordiazePOXIDE HCL 25 MG CAPSULE PO SCH ×2 (17:19→22:07)
[2017-10-11] MEDS ORDERED: MELATONIN 5 MG TABLETS PO PRN (22:00)
[2017-10-11] MEDS: THIAMINE HCL 100 MG TABLET (FP) PO SCH (22:08)
[2017-10-11 22:12] LABS: URINE APPEARANCE CLEAR; URINE BILIRUBIN NEGATIVE (<2.0 mg/dL); URINE COLOR LTYELLOW; URINE GLUCOSE (UA) NEGATIVE (NEGATIVE); URINE KETONE NEGATIVE (NEGATIVE); URINE LEUK ESTERASE NEGATIVE (NEGATIVE); URINE NITRITE NEGATIVE (NEGATIVE); URINE PROTEIN NEGATIVE (NEGATIVE); URINE UROBILINOGEN NEGATIVE mg/dL (0.2-1.0)
[2017-10-12] MEDS: chlordiazePOXIDE HCL 25 MG CAPSULE PO SCH ×4 (05:16→22:25)
[2017-10-12] MEDS: prednisoLONE ACETATE 1% OPHTH SUSP 5 ML BOTTLE OU SCH ×5 (06:25→22:25)
[2017-10-12] MEDS: HYDROCHLOROTHIAZIDE 12.5 MG CAPSULE (FP) PO SCH (10:05)
[2017-10-12] MEDS: ASPIRIN COATED 81 MG TABLET.EC PO SCH (10:05)
[2017-10-12] MEDS: amLODIPine BESYLATE 10 MG TABLET (FP) PO SCH (10:05)
[2017-10-12] MEDS: PRENATAL VITAMINS W/ FOLIC ACID TABLET (FP) PO SCH (10:06)
[2017-10-12 10:14] LABS: HEMATOCRIT 37.6 % (35.4-49); HEMOGLOBIN 12.7 GM/dL (11.7-16.9); MCH 31.8 pg (25.7-33.7); MCHC 33.7 g/dl (32.0-35.9); MEAN CELL VOLUME 94.4 fl (80-96); PLATELET COUNT 200 K/MM3 (134-434); RBC 3.98 M/mm3 (4.00-5.60); RDW 14.2 % (11.9-15.9); WHITE BLOOD COUNT 7.7 K/mm3 (4.0-10.0)
[2017-10-12 10:27] LABS: ALBUMIN 3.2 g/dl (3.4-5.0); ANION GAP 7 (8-16); BLOOD UREA NITROGEN 9 mg/dL (7-18); CALCIUM 8.2 mg/dL (8.5-10.1); CHLORIDE 107 mmol/L (98-107); CO2 29 mmol/L (21-32); GLUCOSE,RANDOM 95 mg/dL (74-106); POTASSIUM 3.9 mmol/L (3.5-5.1); SODIUM 143 mmol/L (136-145)
[2017-10-12 10:31] LABS: ALK PHOS 74 U/L (45-117); BILIRUBIN,TOTAL 0.5 mg/dL (0.2-1.0); CREATININE 1.1 mg/dL (0.7-1.3); SGOT/AST 12 U/L (15-37); SGPT/ALT 15 U/L (12-78); TOT PROT 6.5 g/dl (6.4-8.2)
--- NOTE | 2017-10-12 12:49 | PN ---
[facility] CIWA - CIWA Score Nausea/Vomitin-Mild Nausea/No Vomiting Muscle Tremors: 2 Anxiety: 3 Agitation: 3 Paroxysmal Sweats: 2 Orientation: 0-Oriented Tacttile Disturbances: 1-Very Mild Itch/Numbness Auditory Disturbances: 0-None Visual Disturbances: 1-Very Mild Sensitivity Headache: 0-None Present CIWA-Ar Total Score: 13 S Progress Note (SOAP) Subjective: back pain, body aches, interrupted sleep . Objective: 10/12/17 12:48 Vital Signs Temperature 97.0 F L 10/12/17 09:33 Pulse Rate 75 10/12/17 09:33 Respiratory Rate 18 10/12/17 09:33 Blood Pressure 128/85 10/12/17 09:33 O2 Sat by Pulse Oximetry (%) Laboratory Last Values WBC 7.7 K/mm3 (4.0-10.0) 10/12/17 07:20 RBC 3.98 M/mm3 (4.00-5.60) L 10/12/17 07:20 Hgb 12.7 GM/dL (11.7-16.9) 10/12/17 07:20 Hct 37.6 % (35.4-49) 10/12/17 07:20 MCV 94.4 fl (80-96) 10/12/17 07:20 MCH 31.8 pg (25.7-33.7) 10/12/17 07:20 MCHC 33.7 g/dl (32.0-35.9) 10/12/17 07:20 RDW 14.2 % (11.9-15.9) 10/12/17 07:20 Plt Count 200 K/MM3 (134-434) 10/12/17 07:20 MPV 10.0 fl (7.5-11.1) 10/12/17 07:20 Sodium 143 mmol/L (136-145) 10/12/17 07:20 Potassium 3.9 mmol/L (3.5-5.1) 10/12/17 07:20 Chloride 107 mmol/L (98-107) 10/12/17 07:20 Carbon Dioxide 29 mmol/L (21-32) 10/12/17 07:20 Anion Gap 7 (8-16) L 10/12/17 07:20 BUN 9 mg/dL (7-18) 10/12/17 07:20 Creatinine 1.1 mg/dL (0.7-1.3) 10/12/17 07:20 Creat Clearance w eGFR > 60 (>60) 10/12/17 07:20 POC Glucometer 89 UNITS (80-120) 10/11/17 11:02 Random Glucose 95 mg/dL (74-106) D 10/12/17 07:20 Calcium 8.2 mg/dL (8.5-10.1) L 10/12/17 07:20 Total Bilirubin 0.5 mg/dL (0.2-1.0) 10/12/17 07:20 AST 12 U/L (15-37) L D 10/12/17 07:20 ALT 15 U/L (12-78) D 10/12/17 07:20 Alkaline Phosphatase 74 U/L (45-117) 10/12/17 07:20 Total Protein 6.5 g/dl (6.4-8.2) 10/12/17 07:20 Albumin 3.2 g/dl (3.4-5.0) L 10/12/17 07:20 Urine Color Ltyellow 10/11/17 15:02 Urine Appearance Clear 10/11/17 15:02 Urine pH 5.0 (5.0-8.0) 10/11/17 15:02 Ur Specific [place] 1.010 (1.001-1.035) 10/11/17 15:02 Urine Protein Negative (NEGATIVE) 10/11/17 15:02 Urine Glucose (UA) Negative (NEGATIVE) 10/11/17 15:02 Urine Ketones Negative (NEGATIVE) 10/11/17 15:02 Urine Blood Negative (NEGATIVE) 10/11/17 15:02 Urine Nitrite Negative (NEGATIVE) 10/11/17 15:02 Urine Bilirubin Negative (<2.0 mg/dL) 10/11/17 15:02 Urine Urobilinogen Negative mg/dL (0.2-1.0) 10/11/17 15:02 Ur Leukocyte Esterase Negative (NEGATIVE) 10/11/17 15:02 RPR Titer Nonreactive (NONREACTIVE) 10/12/17 07:20 Assessment: 10/12/17 12:48 withdrawal sx Plan: increase fluids flexeril 5 mg TID for back pain ambulate continue to monitor
[2017-10-12] MEDS ORDERED: CYCLOBENZAPRINE HCL 10 MG TABLET (FP) PO SCH (14:00)
[2017-10-12] MEDS ORDERED: CYCLOBENZAPRINE HCL 5 MG TABLET PO SCH (14:27)
[2017-10-12] MEDS: CYCLOBENZAPRINE HCL 5 MG TABLET PO SCH ×2 (14:31→22:25)
[2017-10-12] MEDS: THIAMINE HCL 100 MG TABLET (FP) PO SCH (22:25)
[2017-10-13] MEDS: CYCLOBENZAPRINE HCL 5 MG TABLET PO SCH ×3 (05:10→22:41)
[2017-10-13] MEDS: chlordiazePOXIDE HCL 25 MG CAPSULE PO SCH ×2 (05:11→10:07)
[2017-10-13] MEDS: prednisoLONE ACETATE 1% OPHTH SUSP 5 ML BOTTLE OU SCH ×5 (05:11→22:41)
[2017-10-13] MEDS: PRENATAL VITAMINS W/ FOLIC ACID TABLET (FP) PO SCH (10:07)
[2017-10-13] MEDS: amLODIPine BESYLATE 10 MG TABLET (FP) PO SCH (10:07)
[2017-10-13] MEDS: ASPIRIN COATED 81 MG TABLET.EC PO SCH (10:08)
[2017-10-13] MEDS: HYDROCHLOROTHIAZIDE 12.5 MG CAPSULE (FP) PO SCH (10:08)
--- NOTE | 2017-10-13 11:34 | PN ---
S CIWA - CIWA Score Nausea/Vomitin-No Nausea/No Vomiting Muscle Tremors: 4-Moderate,w/Arms Extend Anxiety: 4-Mod. Anxious/Guarded Agitation: 4-Moderately Restless Paroxysmal Sweats: 1-Minimal Palms Moist Orientation: 0-Oriented Tacttile Disturbances: 0-None Auditory Disturbances: 0-None Visual Disturbances: 0-None Headache: 0-None Present CIWA-Ar Total Score: 13 S Progress Note (SOAP) Subjective: ANXIETY,SWEATS,BODY ACHES, INTERMITTENT SLEEP. Objective: 10/13/17 11:33 Vital Signs 10/13/17 10/13/17 06:00 09:37 Temperature 97.5 F L 96.4 F L Pulse Rate 79 92 H Respiratory 18 18 Rate Blood Pressure 141/71 133/87 Laboratory Tests 10/11/17 10/11/17 10/12/17 11:02 15:02 07:20 WBC 7.7 RBC 3.98 L Hgb 12.7 Hct 37.6 MCV 94.4 MCH 31.8 MCHC 33.7 RDW 14.2 Plt Count 200 MPV 10.0 Sodium Potassium Chloride Carbon Dioxide Anion Gap BUN Creatinine Creat Clearance w eGFR POC Glucometer 89 Random Glucose Calcium Total Bilirubin AST ALT Alkaline Phosphatase Total Protein Albumin Urine Color Ltyellow Urine Appearance Clear Urine pH 5.0 Ur Specific [place] 1.010 Urine Protein Negative Urine Glucose (UA) Negative Urine Ketones Negative Urine Blood Negative Urine Nitrite Negative Urine Bilirubin Negative Urine Urobilinogen Negative Ur Leukocyte Esterase Negative RPR Titer 10/12/17 10/12/17 07:20 07:20 WBC RBC Hgb Hct MCV MCH MCHC RDW Plt Count MPV Sodium 143 Potassium 3.9 Chloride 107 Carbon Dioxide 29 Anion Gap 7 L BUN 9 Creatinine 1.1 Creat Clearance w eGFR > 60 POC Glucometer Random Glucose 95 D Calcium 8.2 L Total Bilirubin 0.5 AST 12 L D ALT 15 D Alkaline Phosphatase 74 Total Protein 6.5 Albumin 3.2 L Urine Color Urine Appearance Urine pH Ur Specific [place] Urine Protein Urine Glucose (UA) Urine Ketones Urine Blood Urine Nitrite Urine Bilirubin Urine Urobilinogen Ur Leukocyte Esterase RPR Titer Nonreactive Assessment: 10/13/17 11:33 WITHDRAWAL SX Plan: CONTINUE DETOX LIDOCAINE PATCH DIRECTED.
[2017-10-13] MEDS: chlordiazePOXIDE 5 MG CAPSULE PO SCH ×2 (17:23→22:42)
[2017-10-13] MEDS: THIAMINE HCL 100 MG TABLET (FP) PO SCH (22:42)
[2017-10-14] MEDS: chlordiazePOXIDE 5 MG CAPSULE PO SCH ×2 (05:42→10:10)
[2017-10-14] MEDS: CYCLOBENZAPRINE HCL 5 MG TABLET PO SCH ×3 (05:43→23:17)
[2017-10-14] MEDS: prednisoLONE ACETATE 1% OPHTH SUSP 5 ML BOTTLE OU SCH ×5 (06:20→23:17)
[2017-10-14] MEDS: amLODIPine BESYLATE 10 MG TABLET (FP) PO SCH (10:10)
[2017-10-14] MEDS: ASPIRIN COATED 81 MG TABLET.EC PO SCH (10:10)
[2017-10-14] MEDS: PRENATAL VITAMINS W/ FOLIC ACID TABLET (FP) PO SCH (10:10)
[2017-10-14] MEDS: HYDROCHLOROTHIAZIDE 12.5 MG CAPSULE (FP) PO SCH (10:10)
[2017-10-14] MEDS ORDERED: LIDOCAINE 5% TOPICAL PATCH TP ONE (10:14)
--- NOTE | 2017-10-14 13:46 | PN ---
BHS Progress Note (SOAP) Subjective: ANXIETY,SWEATS,BACK PAIN. Objective: 10/14/17 13:45 Vital Signs 10/14/17 10/14/17 06:23 11:06 Temperature 97.4 F L 97.6 F Pulse Rate 67 83 Respiratory 18 17 Rate Blood Pressure 110/73 112/71 Laboratory Tests 10/11/17 10/11/17 10/12/17 11:02 15:02 07:20 WBC 7.7 RBC 3.98 L Hgb 12.7 Hct 37.6 MCV 94.4 MCH 31.8 MCHC 33.7 RDW 14.2 Plt Count 200 MPV 10.0 Sodium Potassium Chloride Carbon Dioxide Anion Gap BUN Creatinine Creat Clearance w eGFR POC Glucometer 89 Random Glucose Calcium Total Bilirubin AST ALT Alkaline Phosphatase Total Protein Albumin Urine Color Ltyellow Urine Appearance Clear Urine pH 5.0 Ur Specific [place] 1.010 Urine Protein Negative Urine Glucose (UA) Negative Urine Ketones Negative Urine Blood Negative Urine Nitrite Negative Urine Bilirubin Negative Urine Urobilinogen Negative Ur Leukocyte Esterase Negative RPR Titer 10/12/17 10/12/17 07:20 07:20 WBC RBC Hgb Hct MCV MCH MCHC RDW Plt Count MPV Sodium 143 Potassium 3.9 Chloride 107 Carbon Dioxide 29 Anion Gap 7 L BUN 9 Creatinine 1.1 Creat Clearance w eGFR > 60 POC Glucometer Random Glucose 95 D Calcium 8.2 L Total Bilirubin 0.5 AST 12 L D ALT 15 D Alkaline Phosphatase 74 Total Protein 6.5 Albumin 3.2 L Urine Color Urine Appearance Urine pH Ur Specific [place] Urine Protein Urine Glucose (UA) Urine Ketones Urine Blood Urine Nitrite Urine Bilirubin Urine Urobilinogen Ur Leukocyte Esterase RPR Titer Nonreactive Assessment: 10/14/17 13:46 WITHDRAWAL SX Plan: CONTINUE DETOX LIDOCAINE PATCH DIRECTED
[2017-10-14] MEDS: chlordiazePOXIDE HCL 10 MG CAPSULE PO SCH ×2 (17:04→23:18)
[2017-10-14] MEDS ORDERED: LIDOCAINE PATCH REMOVAL MC SCH ×2 (22:00)
[2017-10-14] MEDS: THIAMINE HCL 100 MG TABLET (FP) PO SCH (23:17)
[2017-10-15] MEDS: CYCLOBENZAPRINE HCL 5 MG TABLET PO SCH (05:35)
[2017-10-15] MEDS: chlordiazePOXIDE HCL 10 MG CAPSULE PO SCH (05:35)
[2017-10-15] MEDS: prednisoLONE ACETATE 1% OPHTH SUSP 5 ML BOTTLE OU SCH (05:36)
[2017-10-15 06:14] VITALS: BP 126/84; PULSE 81; TEMP 98
[2017-10-15] MEDS ORDERED: LIDOCAINE 5% TOPICAL PATCH TP SCH (10:00)
--- NOTE | 2017-10-15 12:31 | PN ---
BHS Progress Note (SOAP) Subjective: DETOX COMPLETED. ALERT O X 3. NAD. PT REPORTS HE HAS HIS PMD, DR. MARTIN AT [facility] [address] [facility]. REPORTS HAS OWN MEDS WITH HIM IN HIS PROPERTY. Objective: 10/15/17 12:30 Vital Signs Temperature 98.0 F 10/15/17 06:13 Pulse Rate 81 10/15/17 06:13 Respiratory Rate 18 10/15/17 06:13 Blood Pressure 126/84 10/15/17 06:13 O2 Sat by Pulse Oximetry (%) Laboratory Tests 10/11/17 10/11/17 10/12/17 11:02 15:02 07:20 WBC 7.7 RBC 3.98 L Hgb 12.7 Hct 37.6 MCV 94.4 MCH 31.8 MCHC 33.7 RDW 14.2 Plt Count 200 MPV 10.0 Sodium Potassium Chloride Carbon Dioxide Anion Gap BUN Creatinine Creat Clearance w eGFR POC Glucometer 89 Random Glucose Calcium Total Bilirubin AST ALT Alkaline Phosphatase Total Protein Albumin Urine Color Ltyellow Urine Appearance Clear Urine pH 5.0 Ur Specific [place] 1.010 Urine Protein Negative Urine Glucose (UA) Negative Urine Ketones Negative Urine Blood Negative Urine Nitrite Negative Urine Bilirubin Negative Urine Urobilinogen Negative Ur Leukocyte Esterase Negative RPR Titer 10/12/17 10/12/17 07:20 07:20 WBC RBC Hgb Hct MCV MCH MCHC RDW Plt Count MPV Sodium 143 Potassium 3.9 Chloride 107 Carbon Dioxide 29 Anion Gap 7 L BUN 9 Creatinine 1.1 Creat Clearance w eGFR > 60 POC Glucometer Random Glucose 95 D Calcium 8.2 L Total Bilirubin 0.5 AST 12 L D ALT 15 D Alkaline Phosphatase 74 Total Protein 6.5 Albumin 3.2 L Urine Color Urine Appearance Urine pH Ur Specific [place] Urine Protein Urine Glucose (UA) Urine Ketones Urine Blood Urine Nitrite Urine Bilirubin Urine Urobilinogen Ur Leukocyte Esterase RPR Titer Nonreactive Assessment: 10/15/17 12:30 MEDICALLY STABLE Plan: D/C PT TODAY
--- NOTE | 2017-10-15 12:34 | DS ---
[facility] Detox Discharge Summary Admission Date: 10/11/17 Discharge Date: 10/15/17 - History Present History: Alcohol Dependence Additional Comments: DETOX COMPLETED. ALERT O X 3. NAD. FOLLOW UP WITH PMD DR. MARTIN AT [facility] [address] [facility] [place]. Pertinent Past History: PLEASE SEE DX BELOW - Physical Exam Results Vital Signs: Vital Signs Temperature 98.0 F 10/15/17 06:13 Pulse Rate 81 10/15/17 06:13 Respiratory Rate 18 10/15/17 06:13 Blood Pressure 126/84 10/15/17 06:13 O2 Sat by Pulse Oximetry (%) Pertinent Admission Physical Exam Findings: WITHDRAWAL SX Laboratory Tests 10/11/17 10/11/17 10/12/17 11:02 15:02 07:20 WBC 7.7 RBC 3.98 L Hgb 12.7 Hct 37.6 MCV 94.4 MCH 31.8 MCHC 33.7 RDW 14.2 Plt Count 200 MPV 10.0 Sodium Potassium Chloride Carbon Dioxide Anion Gap BUN Creatinine Creat Clearance w eGFR POC Glucometer 89 Random Glucose Calcium Total Bilirubin AST ALT Alkaline Phosphatase Total Protein Albumin Urine Color Ltyellow Urine Appearance Clear Urine pH 5.0 Ur Specific Council 1.010 Urine Protein Negative Urine Glucose (UA) Negative Urine Ketones Negative Urine Blood Negative Urine Nitrite Negative Urine Bilirubin Negative Urine Urobilinogen Negative Ur Leukocyte Esterase Negative RPR Titer 10/12/17 10/12/17 07:20 07:20 WBC RBC Hgb Hct MCV MCH MCHC RDW Plt Count MPV Sodium 143 Potassium 3.9 Chloride 107 Carbon Dioxide 29 Anion Gap 7 L BUN 9 Creatinine 1.1 Creat Clearance w eGFR > 60 POC Glucometer Random Glucose 95 D Calcium 8.2 L Total Bilirubin 0.5 AST 12 L D ALT 15 D Alkaline Phosphatase 74 Total Protein 6.5 Albumin 3.2 L Urine Color Urine Appearance Urine pH Ur Specific Council Urine Protein Urine Glucose (UA) Urine Ketones Urine Blood Urine Nitrite Urine Bilirubin Urine Urobilinogen Ur Leukocyte Esterase RPR Titer Nonreactive - Treatment Hospital Course: Detox Protocol Followed, Detoxed Safely, Responded well, Discharged Condition Good Patient has Accepted a Rehab Referral to: SEE COUNSELOR'S NOTE - Medication Discharge Medications: Ambulatory Orders Metoprolol Succinate [Toprol XL -] 100 mg PO DAILY 12/29/13 Aspirin [Ecotrin] 81 mg PO DAILY 01/11/17 Gabapentin [Neurontin] 600 mg PO TID PRN 01/11/17 Amlodipine Besylate [Norvasc -] 10 mg PO DAILY 07/05/17 Diphenhydramine HCl 25 mg PO TID PRN 10/11/17 Hydrochlorothiazide [Hctz -] 12.5 mg PO DAILY 10/11/17 Prednisolone 1% Ophthalmic [Pred Forte 1% -] 1 drop OP 5XD 10/11/17 - Diagnosis (1) Alcohol dependence with uncomplicated withdrawal Status: Acute (2) HIV positive long-term non-progressor Status: Chronic (3) HTN (hypertension) Status: Chronic Qualifiers: Hypertension type: essential hypertension Qualified Code(s): I10 - Essential (primary) hypertension (4) Nicotine dependence Status: Chronic Qualifiers: Nicotine product type: cigarettes Substance use status: in withdrawal Qualified Code(s): F17.213 - Nicotine dependence, cigarettes, with withdrawal (5) Obesity (BMI 30-39.9) Status: Chronic (6) Peripheral neuropathic pain Status: Chronic - AMA Did Patient Leave Against Medical Advice: No
[2017-10-15] MEDS ORDERED: LIDOCAINE PATCH REMOVAL MC SCH (22:00)
== END 2017-10-15 08:50 | disposition home or self-care (01) | DRG 774 ==
LOC: YASAS 09:34 → Y3N 10:50
PROVIDERS: ADMIT Surgery; ATTEND Surgery
PROC: HZ2ZZZZ Detoxification Services for Substance Abuse Treatment (ICD-10-PCS; principal; 2017-10-11)
DX: F10.230 Alcohol dependence with withdrawal, uncomplicated (principal); F14.20 Cocaine dependence, uncomplicated; F17.210 Nicotine dependence, cigarettes, uncomplicated; Z21 Asymptomatic human immunodeficiency virus [HIV] infection status; I12.9 Hypertensive chronic kidney disease with stage 1 through stage 4 chronic kidney disease, or unspecified chronic kidney disease; N18.3 Chronic kidney disease, stage 3 (moderate); M17.0 Bilateral primary osteoarthritis of knee; M79.2 Neuralgia and neuritis, unspecified; E66.9 Obesity, unspecified; Z68.36 Body mass index [BMI] 36.0-36.9, adult; Z88.0 Allergy status to penicillin; Z88.8 Allergy status to other drugs, medicaments and biological substances; Z91.018 Allergy to other foods
CPT/HCPCS: 36415; 80053; 81003; 82962; 85027; 86593; 93005; 93010

== ENCOUNTER 2018-09-12 10:44 | Inpatient (IN) | payer OTHER ==
[2018-09-12 11:51] VITALS: BMI 36.3
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
[2018-09-12] MEDS ORDERED: NICOTINE POLACRILEX 2 MG GUM BUC PRN (12:39)
[2018-09-12] MEDS ORDERED: ONDANSETRON *ODT* 4 MG TABLET SL PRN (12:39)
[2018-09-12] MEDS ORDERED: IBUPROFEN 400 MG TABLET (FP) PO PRN (12:39)
[2018-09-12] MEDS ORDERED: chlordiazePOXIDE HCL 10 MG CAPSULE PO PRN (12:39)
[2018-09-12] MEDS ORDERED: MENTHOL/PHENOL 1 EACH UD MM PRN (12:39)
[2018-09-12] MEDS ORDERED: MAG HYDROX/AL HYDROX/SIMETH 30 ML UNIT-DOSE CUP PO PRN (12:39)
[2018-09-12] MEDS ORDERED: hydrOXYzine PAMOATE 25 MG CAPSULE (FP) PO PRN (12:39)
[2018-09-12] MEDS ORDERED: MAGNESIUM CITRATE 300 ML BOTTLE PO PRN (12:39)
[2018-09-12] MEDS ORDERED: ACETAMINOPHEN 325 MG TABLET (FP) PO PRN ×2 (12:39)
[2018-09-12] MEDS ORDERED: BISMUTH SUBSALICYLATE 524 MG/30 ML UD PO PRN (12:39)
[2018-09-12] MEDS ORDERED: METHOCARBAMOL 500 MG TABLET PO PRN (12:39)
[2018-09-12] MEDS ORDERED: P-EPHED 60MG/TRIPROLIDI 2.5MG TABLET PO PRN (12:39)
[2018-09-12] MEDS ORDERED: MAGNESIUM HYDROX 2400MG/30ML ORAL SUSPENSION 30 ML CUP PO PRN (12:39)
[2018-09-12] MEDS: NICOTINE 14 MG/24 HOURS TOPICAL PATCH TD SCH (13:30)
[2018-09-12] MEDS: chlordiazePOXIDE HCL 25 MG CAPSULE PO SCH ×2 (13:30→22:31)
[2018-09-12] MEDS: MELATONIN 5 MG TABLETS PO PRN (22:31)
[2018-09-12] MEDS: THIAMINE HCL 100 MG TABLET (FP) PO SCH (22:32)
[2018-09-13] MEDS: chlordiazePOXIDE HCL 25 MG CAPSULE PO SCH (06:07)
[2018-09-13] MEDS: PRENATAL VITAMINS W/ FOLIC ACID TABLET (FP) PO SCH (10:23)
[2018-09-13] MEDS: HYDROCHLOROTHIAZIDE 12.5 MG CAPSULE (FP) PO SCH (10:23)
[2018-09-13] MEDS: ASPIRIN COATED 81 MG TABLET.EC PO SCH (10:23)
[2018-09-13] MEDS: amLODIPine BESYLATE 10 MG TABLET (FP) PO SCH (10:23)
[2018-09-13] MEDS: SODIUM CHLORIDE NASAL SPRAY 44 ML BOTTLE NS SCH (10:24)
[2018-09-13] MEDS: NICOTINE 14 MG/24 HOURS TOPICAL PATCH TD SCH (10:24)
[2018-09-13 11:06] LABS: ALBUMIN 3.6 g/dl (3.4-5.0); BILIRUBIN,TOTAL 0.5 mg/dL (0.2-1); BLOOD UREA NITROGEN 13.6 mg/dL (7-18); CALCIUM 8.7 mg/dL (8.5-10.1); CREATININE 1.4 mg/dL (0.55-1.3); POTASSIUM 3.9 mmol/L (3.5-5.1); TOT PROT 7.4 g/dl (6.4-8.2)
[2018-09-13 11:13] LABS: HEMATOCRIT 39.4 % (35.4-49); HEMOGLOBIN 13.1 GM/dL (11.7-16.9); MCH 31.9 pg (25.7-33.7); MCHC 33.2 g/dl (32.0-35.9); MEAN PLT VOLUME 10.7 fl (7.5-11.1); RBC 4.11 M/mm3 (4.00-5.60); RDW 14.5 % (11.9-15.9); WHITE BLOOD COUNT 6.3 K/mm3 (4.0-10.0)
[2018-09-13 11:28] LABS: PLATELET COUNT 219 K/MM3 (134-434)
[2018-09-13] MEDS: chlordiazePOXIDE 5 MG CAPSULE PO SCH ×2 (13:50→22:19)
--- NOTE | 2018-09-13 14:38 | PN ---
[facility] CIWA - CIWA Score Nausea/Vomitin-No Nausea/No Vomiting Muscle Tremors: 3 Anxiety: 3 Agitation: 3 Paroxysmal Sweats: 2 Orientation: 0-Oriented Tacttile Disturbances: 0-None Auditory Disturbances: 0-None Visual Disturbances: 0-None Headache: 0-None Present CIWA-Ar Total Score: 11 S Progress Note (SOAP) Subjective: shakes sweats interrupted sleep Objective: 09/13/18 14:37 Vital Signs Temperature 98.4 F 09/13/18 14:06 Pulse Rate 83 09/13/18 14:06 Respiratory Rate 16 09/13/18 14:06 Blood Pressure 109/65 09/13/18 14:06 O2 Sat by Pulse Oximetry (%) Laboratory Tests 09/13/18 09/13/18 09/13/18 07:30 07:30 07:30 WBC 6.3 RBC 4.11 Hgb 13.1 Hct 39.4 MCV 96.0 MCH 31.9 MCHC 33.2 RDW 14.5 Plt Count 219 MPV 10.7 Sodium 141 Potassium 3.9 Chloride 108 H Carbon Dioxide 25 Anion Gap 7 L BUN 13.6 Creatinine 1.4 H Est GFR (CKD-EPI)AfAm 65.09 Est GFR (CKD-EPI)NonAf 56.16 Random Glucose 152 H Calcium 8.7 Total Bilirubin 0.5 AST 18 ALT 21 Alkaline Phosphatase 67 Total Protein 7.4 Albumin 3.6 RPR Titer Nonreactive labs noted aaox3 ambulating no acute distress Assessment: 09/13/18 14:37 mild withdrawal sx Plan: continue detox increase fluids
[2018-09-13] MEDS: MELATONIN 5 MG TABLETS PO PRN (22:19)
[2018-09-13] MEDS: THIAMINE HCL 100 MG TABLET (FP) PO SCH (22:19)
[2018-09-14] MEDS: chlordiazePOXIDE 5 MG CAPSULE PO SCH (05:35)
--- NOTE | 2018-09-14 09:17 | PN ---
S CIWA - CIWA Score Nausea/Vomitin-No Nausea/No Vomiting Muscle Tremors: 3 Anxiety: 2 Agitation: 3 Paroxysmal Sweats: 2 Orientation: 0-Oriented Tacttile Disturbances: 0-None Auditory Disturbances: 0-None Visual Disturbances: 0-None Headache: 0-None Present CIWA-Ar Total Score: 10 BHS Progress Note (SOAP) Subjective: much better rest and sleep little sweats little anxiety Objective: 09/14/18 09:16 Vital Signs Temperature 97.7 F 09/14/18 06:15 Pulse Rate 80 09/14/18 06:15 Respiratory Rate 20 09/14/18 06:15 Blood Pressure 128/72 09/14/18 06:15 O2 Sat by Pulse Oximetry (%) Laboratory Tests 09/13/18 09/13/18 09/13/18 07:30 07:30 07:30 WBC 6.3 RBC 4.11 Hgb 13.1 Hct 39.4 MCV 96.0 MCH 31.9 MCHC 33.2 RDW 14.5 Plt Count 219 MPV 10.7 Sodium 141 Potassium 3.9 Chloride 108 H Carbon Dioxide 25 Anion Gap 7 L BUN 13.6 Creatinine 1.4 H Est GFR (CKD-EPI)AfAm 65.09 Est GFR (CKD-EPI)NonAf 56.16 Random Glucose 152 H Calcium 8.7 Total Bilirubin 0.5 AST 18 ALT 21 Alkaline Phosphatase 67 Total Protein 7.4 Albumin 3.6 RPR Titer Nonreactive labs noted aaox3 ambulating no acute distress Assessment: 09/14/18 09:16 mild withdrawal sx Plan: continue detox increase fluids
[2018-09-14] MEDS: PRENATAL VITAMINS W/ FOLIC ACID TABLET (FP) PO SCH (10:13)
[2018-09-14] MEDS: HYDROCHLOROTHIAZIDE 12.5 MG CAPSULE (FP) PO SCH (10:13)
[2018-09-14] MEDS: amLODIPine BESYLATE 10 MG TABLET (FP) PO SCH (10:13)
[2018-09-14] MEDS: ASPIRIN COATED 81 MG TABLET.EC PO SCH (10:14)
[2018-09-14] MEDS: SODIUM CHLORIDE NASAL SPRAY 44 ML BOTTLE NS SCH (10:16)
[2018-09-14] MEDS: NICOTINE 14 MG/24 HOURS TOPICAL PATCH TD SCH (10:17)
[2018-09-14] MEDS ORDERED: chlordiazePOXIDE HCL 10 MG CAPSULE PO PRN (13:00)
[2018-09-14] MEDS: chlordiazePOXIDE HCL 10 MG CAPSULE PO SCH ×2 (14:38→21:40)
[2018-09-14] MEDS: THIAMINE HCL 100 MG TABLET (FP) PO SCH (21:40)
[2018-09-14] MEDS: MELATONIN 5 MG TABLETS PO PRN (21:41)
[2018-09-15] MEDS: chlordiazePOXIDE HCL 10 MG CAPSULE PO SCH (05:44)
[2018-09-15 07:57] VITALS: TEMP 97.7
--- NOTE | 2018-09-15 09:04 | DS ---
[facility] Detox Discharge Summary Admission Date: 09/12/18 Discharge Date: 09/15/18 - History Present History: Alcohol Dependence, Cocaine Dependence - Physical Exam Results Vital Signs: Vital Signs Temperature 97.7 F 09/15/18 07:56 Pulse Rate 77 09/15/18 07:56 Respiratory Rate 18 09/15/18 07:56 Blood Pressure 114/79 09/15/18 07:56 O2 Sat by Pulse Oximetry (%) - Treatment Hospital Course: Detox Protocol Followed, Detoxed Safely, Responded well, Discharged Condition Good, Rehab Referral Accepted - Medication Discharge Medications: Ambulatory Orders Metoprolol Succinate [Toprol XL -] 100 mg PO DAILY 12/29/13 Aspirin [Ecotrin] 81 mg PO DAILY 01/11/17 Amlodipine Besylate [Norvasc -] 10 mg PO DAILY 07/05/17 Diphenhydramine HCl 25 mg PO DAILY PRN 10/11/17 Hydrochlorothiazide [Hctz -] 12.5 mg PO DAILY 10/11/17 Sodium Chloride [Saline Nasal [place]] 2 applic NS DAILY 09/12/18 - AMA Did Patient Leave Against Medical Advice: No (pt declined rehab; going home)
[2018-09-15 10:03] VITALS: BP 130/72; PULSE 80
[2018-09-15] MEDS: NICOTINE 14 MG/24 HOURS TOPICAL PATCH TD SCH (10:37)
[2018-09-15] MEDS: HYDROCHLOROTHIAZIDE 12.5 MG CAPSULE (FP) PO SCH (10:37)
[2018-09-15] MEDS: ASPIRIN COATED 81 MG TABLET.EC PO SCH (10:37)
[2018-09-15] MEDS: amLODIPine BESYLATE 10 MG TABLET (FP) PO SCH (10:37)
[2018-09-15] MEDS: SODIUM CHLORIDE NASAL SPRAY 44 ML BOTTLE NS SCH (10:38)
[2018-09-15] MEDS: PRENATAL VITAMINS W/ FOLIC ACID TABLET (FP) PO SCH (10:38)
== END 2018-09-15 09:30 | disposition home or self-care (01) | DRG 774 ==
LOC: YASAS 10:44 → Y6N 12:45
PROVIDERS: ADMIT Surgery; ATTEND Surgery
PROC: HZ2ZZZZ Detoxification Services for Substance Abuse Treatment (ICD-10-PCS; principal; 2018-09-12)
DX: F10.230 Alcohol dependence with withdrawal, uncomplicated (principal); F14.20 Cocaine dependence, uncomplicated; F19.282 Other psychoactive substance dependence with psychoactive substance-induced sleep disorder; I10 Essential (primary) hypertension; Z21 Asymptomatic human immunodeficiency virus [HIV] infection status; Z88.0 Allergy status to penicillin; Z88.2 Allergy status to sulfonamides; Z91.013 Allergy to seafood; Z88.8 Allergy status to other drugs, medicaments and biological substances
CPT/HCPCS: 36415; 80053; 85027; 86593

== ENCOUNTER 2022-11-23 10:49 | Inpatient (IN) | payer OTHER ==
[2022-11-23 12:16] VITALS: BMI 33.9
[2022-11-23] MEDS ORDERED: BENZONATATE 200 MG CAPSULE PO PRN (14:16)
[2022-11-23] MEDS ORDERED: ONDANSETRON *ODT* 4 MG TABLET SL PRN (14:16)
[2022-11-23] MEDS ORDERED: guaiFENesin 600 MG TABLET.ER (FP) PO PRN (14:16)
[2022-11-23] MEDS ORDERED: hydrOXYzine PAMOATE 25 MG CAPSULE (FP) PO PRN (14:16)
[2022-11-23] MEDS ORDERED: ACETAMINOPHEN 325 MG TABLET (FP) PO PRN (14:16)
[2022-11-23] MEDS ORDERED: BENZOCAINE/MENTHOL (CHLORASEPTIC ) LOZENGE MM PRN (14:16)
[2022-11-23] MEDS ORDERED: DICYCLOMINE HCL 10 MG CAPSULE PO PRN (14:16)
[2022-11-23] MEDS ORDERED: NALOXONE HCL (KLOXXADO) 8 MG SPRAY NS PRN (14:16)
[2022-11-23] MEDS ORDERED: LOPERAMIDE HCL 2 MG CAPSULE PO PRN (14:16)
[2022-11-23] MEDS ORDERED: NALOXONE HCL 0.4 MG/ML VIAL IM PRN (14:16)
[2022-11-23] MEDS ORDERED: chlordiazePOXIDE HCL 25 MG CAPSULE PO PRN (14:16)
[2022-11-23] MEDS ORDERED: METHOCARBAMOL 500 MG TABLET PO PRN (14:16)
[2022-11-23] MEDS ORDERED: MAGNESIUM HYDROX 2400MG/30ML ORAL SUSPENSION 30 ML CUP PO PRN (14:16)
[2022-11-23] MEDS ORDERED: MAG HYDROX/AL HYDROX/SIMETH 30 ML UNIT-DOSE CUP PO PRN (14:16)
[2022-11-23] MEDS ORDERED: BISMUTH SUBSALICYLATE 524 MG/30 ML PO PRN (14:16)
[2022-11-23] MEDS ORDERED: POLYETHYLENE GLYCOL (HEALTHYLAX) 3350 17 GM PACKET PO PRN (14:16)
[2022-11-23] MEDS ORDERED: IBUPROFEN 400 MG TABLET (FP) PO PRN (14:16)
[2022-11-23] MEDS: chlordiazePOXIDE HCL 25 MG CAPSULE PO SCH ×2 (17:25→22:20)
[2022-11-23] MEDS: THIAMINE HCL 100 MG TABLET (FP) PO SCH (22:19)
[2022-11-23] MEDS: MELATONIN 5 MG TABLETS PO SCH (22:19)
[2022-11-23] MEDS: GABAPENTIN 100 MG CAPSULE PO SCH (22:20)
[2022-11-24] MEDS: chlordiazePOXIDE HCL 25 MG CAPSULE PO SCH ×4 (05:52→22:16)
[2022-11-24 09:49] LABS: HEMATOCRIT 36.9 % (35.4-49); HEMOGLOBIN 12.3 GM/dL (11.7-16.9); MCH 31.8 pg (25.7-33.7); MCHC 33.3 g/dl (32.0-35.9); MEAN CELL VOLUME 95.4 fl (80-96); PLATELET COUNT 224 10^3/uL (134-434); RBC 3.86 M/mm3 (4.00-5.60); RDW 14.2 % (11.9-15.9)
[2022-11-24 09:53] LABS: POTASSIUM 3.8 mmol/L (3.5-5.1)
[2022-11-24 10:00] LABS: CALCIUM 8.6 mg/dL (8.5-10.1)
[2022-11-24 10:02] LABS: BLOOD UREA NITROGEN 16.3 mg/dL (7-18); CREATININE 1.1 mg/dL (0.55-1.3); TOT PROT 6.7 g/dl (6.4-8.2)
[2022-11-24 10:04] LABS: BILIRUBIN,TOTAL 0.3 mg/dL (0.2-1)
[2022-11-24] MEDS: PRENATAL VITAMINS W/ FOLIC ACID TABLET (FP) PO SCH (10:22)
[2022-11-24] MEDS: HYDROCHLOROTHIAZIDE 12.5 MG CAPSULE (FP) PO SCH (10:23)
[2022-11-24] MEDS: GABAPENTIN 100 MG CAPSULE PO SCH ×2 (10:23→22:16)
[2022-11-24] MEDS: ASPIRIN COATED 81 MG TABLET.EC PO SCH (10:23)
[2022-11-24] MEDS: amLODIPine BESYLATE 10 MG TABLET (FP) PO SCH (10:23)
[2022-11-24] MEDS: IBUPROFEN 600 MG TABLET (FP) PO PRN (17:58)
[2022-11-24] MEDS: MELATONIN 5 MG TABLETS PO SCH (22:16)
[2022-11-24] MEDS: THIAMINE HCL 100 MG TABLET (FP) PO SCH (22:16)
[2022-11-25] MEDS: chlordiazePOXIDE HCL 25 MG CAPSULE PO SCH ×4 (05:55→22:32)
[2022-11-25] MEDS: amLODIPine BESYLATE 10 MG TABLET (FP) PO SCH (10:08)
[2022-11-25] MEDS: HYDROCHLOROTHIAZIDE 12.5 MG CAPSULE (FP) PO SCH (10:08)
[2022-11-25] MEDS: GABAPENTIN 100 MG CAPSULE PO SCH ×2 (10:08→22:32)
[2022-11-25] MEDS: ASPIRIN COATED 81 MG TABLET.EC PO SCH (10:08)
[2022-11-25] MEDS: PRENATAL VITAMINS W/ FOLIC ACID TABLET (FP) PO SCH (10:10)
[2022-11-25] MEDS: MELATONIN 5 MG TABLETS PO SCH (22:32)
[2022-11-25] MEDS: THIAMINE HCL 100 MG TABLET (FP) PO SCH (22:32)
[2022-11-26] MEDS ORDERED: chlordiazePOXIDE HCL 10 MG CAPSULE PO PRN
[2022-11-26] MEDS: chlordiazePOXIDE HCL 10 MG CAPSULE PO SCH ×4 (05:50→23:13)
[2022-11-26] MEDS: ASPIRIN COATED 81 MG TABLET.EC PO SCH (10:05)
[2022-11-26] MEDS: HYDROCHLOROTHIAZIDE 12.5 MG CAPSULE (FP) PO SCH (10:05)
[2022-11-26] MEDS: PRENATAL VITAMINS W/ FOLIC ACID TABLET (FP) PO SCH (10:06)
[2022-11-26] MEDS: GABAPENTIN 100 MG CAPSULE PO SCH ×2 (10:06→23:13)
[2022-11-26] MEDS: amLODIPine BESYLATE 10 MG TABLET (FP) PO SCH (10:06)
[2022-11-26] MEDS: IBUPROFEN 600 MG TABLET (FP) PO PRN (14:20)
[2022-11-26] MEDS: THIAMINE HCL 100 MG TABLET (FP) PO SCH (23:13)
[2022-11-26] MEDS: MELATONIN 5 MG TABLETS PO SCH (23:13)
[2022-11-27] MEDS: chlordiazePOXIDE HCL 10 MG CAPSULE PO SCH ×2 (05:48→17:30)
[2022-11-27] MEDS: HYDROCHLOROTHIAZIDE 12.5 MG CAPSULE (FP) PO SCH (10:14)
[2022-11-27] MEDS: amLODIPine BESYLATE 10 MG TABLET (FP) PO SCH (10:14)
[2022-11-27] MEDS: GABAPENTIN 100 MG CAPSULE PO SCH ×2 (10:14→22:25)
[2022-11-27] MEDS: ASPIRIN COATED 81 MG TABLET.EC PO SCH (10:14)
[2022-11-27] MEDS: PRENATAL VITAMINS W/ FOLIC ACID TABLET (FP) PO SCH (10:14)
[2022-11-27] MEDS: THIAMINE HCL 100 MG TABLET (FP) PO SCH (22:25)
[2022-11-27] MEDS: MELATONIN 5 MG TABLETS PO SCH (22:25)
[2022-11-28] MEDS ORDERED: chlordiazePOXIDE HCL 10 MG CAPSULE PO ONE (05:00)
[2022-11-28] MEDS: HYDROCHLOROTHIAZIDE 12.5 MG CAPSULE (FP) PO SCH (10:22)
[2022-11-28] MEDS: GABAPENTIN 100 MG CAPSULE PO SCH (10:22)
[2022-11-28] MEDS: amLODIPine BESYLATE 10 MG TABLET (FP) PO SCH (10:22)
[2022-11-28] MEDS: ASPIRIN COATED 81 MG TABLET.EC PO SCH (10:22)
[2022-11-28] MEDS: PRENATAL VITAMINS W/ FOLIC ACID TABLET (FP) PO SCH (10:22)
[2022-11-28 13:05] VITALS: BP 121/72; PULSE 92; RESP 20; TEMP 97.3
== END 2022-11-28 14:07 | disposition other institution (70) | DRG 774 ==
LOC: YASAS 10:49 → Y3N 15:13
PROVIDERS: ADMIT Allergy & Immunology; ATTEND Surgery
PROC: HZ2ZZZZ Detoxification Services for Substance Abuse Treatment (ICD-10-PCS; principal; 2022-11-23)
DX: F10.230 Alcohol dependence with withdrawal, uncomplicated (principal); F14.20 Cocaine dependence, uncomplicated; F17.210 Nicotine dependence, cigarettes, uncomplicated; F10.282 Alcohol dependence with alcohol-induced sleep disorder; F10.24 Alcohol dependence with alcohol-induced mood disorder; Z21 Asymptomatic human immunodeficiency virus [HIV] infection status; M79.2 Neuralgia and neuritis, unspecified; M17.0 Bilateral primary osteoarthritis of knee; Z88.8 Allergy status to other drugs, medicaments and biological substances
CPT/HCPCS: 36415; 71046-TC-FY; 80053; 83036; 85027; 86780; 87635; 87811

== ENCOUNTER 2023-11-29 11:54 | Inpatient (IN) | payer OTHER ==
[2023-11-29 12:31] VITALS: BMI 33.5
[2023-11-29] MEDS ORDERED: MAGNESIUM HYDROX 2400MG/30ML ORAL SUSPENSION 30 ML CUP PO PRN (13:23)
[2023-11-29] MEDS ORDERED: DICYCLOMINE HCL 10 MG CAPSULE PO PRN (13:23)
[2023-11-29] MEDS ORDERED: NICOTINE POLACRILEX 4 MG GUM BUC PRN (13:23)
[2023-11-29] MEDS ORDERED: NALOXONE HCL 0.4 MG/ML VIAL IM PRN (13:23)
[2023-11-29] MEDS ORDERED: BENZONATATE 200 MG CAPSULE PO PRN (13:23)
[2023-11-29] MEDS ORDERED: POLYETHYLENE GLYCOL (HEALTHYLAX) 3350 17 GM PACKET PO PRN (13:23)
[2023-11-29] MEDS ORDERED: LOPERAMIDE HCL 2 MG CAPSULE PO PRN (13:23)
[2023-11-29] MEDS ORDERED: BISMUTH SUBSALICYLATE 524 MG/30 ML PO PRN (13:23)
[2023-11-29] MEDS ORDERED: ONDANSETRON *ODT* 4 MG TABLET SL PRN (13:23)
[2023-11-29] MEDS ORDERED: chlordiazePOXIDE HCL 25 MG CAPSULE PO PRN (13:23)
[2023-11-29] MEDS ORDERED: BENZOCAINE/MENTHOL (CHLORASEPTIC ) LOZENGE MM PRN (13:23)
[2023-11-29] MEDS ORDERED: NALOXONE (NARCAN) HCL 4 MG/0.1 ML SPRAY NS PRN (13:23)
[2023-11-29] MEDS ORDERED: guaiFENesin 600 MG TABLET.ER (FP) PO PRN (13:23)
[2023-11-29] MEDS ORDERED: MAG HYDROX/AL HYDROX/SIMETH 30 ML UNIT-DOSE CUP PO PRN (13:23)
[2023-11-29] MEDS ORDERED: diphenhydrAMINE HCL 25 MG CAPSULE (FP) PO PRN (13:25)
[2023-11-29] MEDS: amLODIPine BESYLATE 10 MG TABLET (FP) PO SCH (14:30)
[2023-11-29] MEDS ORDERED: amLODIPine BESYLATE 5 MG TABLET (FP) ONE (14:52)
[2023-11-29] MEDS: chlordiazePOXIDE HCL 25 MG CAPSULE PO SCH ×2 (15:12→15:19)
[2023-11-29] MEDS: LOSARTAN POTASSIUM 25 MG TABLET PO SCH ×2 (15:21→15:34)
[2023-11-29] MEDS: COLLOIDAL OATMEAL 1 BAR EACH TP PRN (15:36)
[2023-11-29] MEDS: HYDROCORTISONE 1% TOPICAL OINT 30 GM TUBE TP SCH (15:37)
[2023-11-29] MEDS: METHOCARBAMOL 500 MG TABLET PO PRN (17:15)
[2023-11-29] MEDS: MELATONIN 5 MG TABLETS PO SCH (23:13)
[2023-11-29] MEDS: THIAMINE 100 MG TABLET PO SCH (23:13)
[2023-11-30] MEDS: chlordiazePOXIDE HCL 25 MG CAPSULE PO SCH (04:52)
[2023-11-30 09:29] LABS: HEMATOCRIT 38.5 % (35.4-49); MCH 32.6 pg (25.7-33.7); MCHC 33.7 g/dl (32.0-35.9); MEAN CELL VOLUME 96.8 fl (80-96); PLATELET COUNT 193 10^3/uL (134-434); RBC 3.98 M/mm3 (4.00-5.60); WHITE BLOOD COUNT 6.1 K/mm3 (4.0-10.0)
[2023-11-30 10:00] LABS: CHLORIDE 108 mmol/L (98-107); POTASSIUM 3.9 mmol/L (3.5-5.1); SODIUM 142 mmol/L (136-145)
[2023-11-30 10:02] LABS: ALBUMIN 3.2 g/dl (3.4-5.0); ANION GAP 8 mmol/L (4-13); BLOOD UREA NITROGEN 14.8 mg/dL (7-18); CALCIUM 8.5 mg/dL (8.5-10.1); CO2 25 mmol/L (21-32)
[2023-11-30 10:03] LABS: GLUCOSE,RANDOM 132 mg/dL (74-106)
[2023-11-30 10:05] LABS: SGPT/ALT 15 U/L (13-61)
[2023-11-30 10:06] LABS: SGOT/AST 17 U/L (15-37)
[2023-11-30 10:07] LABS: BILIRUBIN,TOTAL 0.4 mg/dL (0.2-1); TOT PROT 6.8 g/dl (6.4-8.2)
[2023-11-30 10:09] LABS: ALK PHOS 74 U/L (45-117)
[2023-11-30] MEDS: ASPIRIN COATED 81 MG TABLET.EC PO SCH (10:21)
[2023-11-30] MEDS: PRENATAL VITAMINS W/ FOLIC ACID TABLET (FP) PO SCH (10:21)
[2023-11-30] MEDS: ACETAMINOPHEN 325 MG TABLET (FP) PO PRN (10:25)
[2023-11-30] MEDS: LACTULOSE 20 GM/30 ML UDC (FOR ORAL USE ONLY) PO SCH (13:51)
[2023-12-01] MEDS ORDERED: chlordiazePOXIDE HCL 10 MG CAPSULE PO PRN
[2023-12-01] MEDS: chlordiazePOXIDE HCL 10 MG CAPSULE PO SCH (05:15)
[2023-12-01] MEDS: LOSARTAN POTASSIUM 50 MG TABLET PO SCH (11:11)
[2023-12-01] MEDS: NALTREXONE HCL 50 MG TABLET PO ONE (11:12)
[2023-12-01] MEDS: hydrOXYzine PAMOATE 25 MG CAPSULE (FP) PO PRN (22:15)
[2023-12-02] MEDS: chlordiazePOXIDE HCL 10 MG CAPSULE PO SCH (06:00)
[2023-12-02] MEDS: NALTREXONE HCL 50 MG TABLET PO SCH (09:30)
[2023-12-03] MEDS: chlordiazePOXIDE HCL 10 MG CAPSULE PO ONE (05:31)
[2023-12-03 09:10] VITALS: BP 156/87; PULSE 93; RESP 16; TEMP 98.5
== END 2023-12-03 08:53 | disposition home or self-care (01) | DRG 774 ==
LOC: YASAS 11:54 → Y6N 13:49
PROVIDERS: ADMIT Neuromusculoskeletal Medicine & OMM; ATTEND Neuromusculoskeletal Medicine & OMM
PROC: HZ2ZZZZ Detoxification Services for Substance Abuse Treatment (ICD-10-PCS; principal; 2023-11-29)
DX: F10.230 Alcohol dependence with withdrawal, uncomplicated (principal); F14.20 Cocaine dependence, uncomplicated; F17.210 Nicotine dependence, cigarettes, uncomplicated; Z21 Asymptomatic human immunodeficiency virus [HIV] infection status; E72.20 Disorder of urea cycle metabolism, unspecified; I10 Essential (primary) hypertension; M17.0 Bilateral primary osteoarthritis of knee; Z88.8 Allergy status to other drugs, medicaments and biological substances
CPT/HCPCS: 36415; 80053; 80305; 80307; 82140; 85027; 86359; 86360; 86780; 93005; 93010

== ENCOUNTER 2024-08-15 08:24 | Inpatient (IN) | payer OTHER ==
[2024-08-15 08:39] VITALS: BMI 34.9
[2024-08-15] MEDS ORDERED: BISMUTH SUBSALICYLATE 524 MG/30 ML PO PRN (10:53)
[2024-08-15] MEDS ORDERED: BENZONATATE 200 MG CAPSULE PO PRN (10:53)
[2024-08-15] MEDS ORDERED: POLYETHYLENE GLYCOL (HEALTHYLAX) 3350 17 GM PACKET PO PRN (10:53)
[2024-08-15] MEDS ORDERED: DICYCLOMINE HCL 10 MG CAPSULE PO PRN (10:53)
[2024-08-15] MEDS ORDERED: hydrOXYzine PAMOATE 25 MG CAPSULE (FP) PO PRN (10:53)
[2024-08-15] MEDS ORDERED: LOPERAMIDE HCL 2 MG CAPSULE PO PRN (10:53)
[2024-08-15] MEDS ORDERED: MAG HYDROX/AL HYDROX/SIMETH 30 ML UNIT-DOSE CUP PO PRN (10:53)
[2024-08-15] MEDS ORDERED: BENZOCAINE/MENTHOL (CHLORASEPTIC ) LOZENGE MM PRN (10:53)
[2024-08-15] MEDS ORDERED: guaiFENesin 600 MG TABLET.ER (FP) PO PRN (10:53)
[2024-08-15] MEDS ORDERED: ONDANSETRON *ODT* 4 MG TABLET SL PRN (10:53)
[2024-08-15] MEDS ORDERED: NALOXONE (NARCAN) HCL 4 MG/0.1 ML SPRAY NS PRN (10:53)
[2024-08-15] MEDS ORDERED: MAGNESIUM HYDROX 2400MG/30ML ORAL SUSPENSION 30 ML CUP PO PRN (10:53)
[2024-08-15] MEDS: ACETAMINOPHEN 325 MG TABLET (FP) PO PRN (13:56)
[2024-08-15] MEDS: THIAMINE 100 MG TABLET PO SCH (21:56)
[2024-08-15] MEDS: MELATONIN 5 MG TABLETS PO SCH (21:56)
[2024-08-16] MEDS ORDERED: diazePAM 5 MG TABLET PO PRN (08:21)
[2024-08-16] MEDS: amLODIPine BESYLATE 10 MG TABLET (FP) PO SCH (10:19)
[2024-08-16] MEDS: PRENATAL VITAMINS W/ FOLIC ACID TABLET (FP) PO SCH (10:19)
[2024-08-16] MEDS: LOSARTAN POTASSIUM 50 MG TABLET PO SCH (10:19)
[2024-08-16] MEDS: diazePAM 5 MG TABLET PO SCH (10:20)
[2024-08-16] MEDS: EMTRICITAB/RILPIVIRI/TENOF ALA (ODEFSEY) TABLET PO SCH ×2 (10:55→17:18)
[2024-08-16] MEDS ORDERED: EMTRICITAB/RILPIVIRI/TENOF ALA (ODEFSEY) TABLET PO SCH (11:44)
[2024-08-16 12:38] LABS: CHLORIDE 108 mmol/L (98-107); POTASSIUM 4.2 mmol/L (3.5-5.1); SODIUM 139 mmol/L (136-145)
[2024-08-16 12:59] LABS: ALBUMIN 3.4 g/dl (3.4-5.0); ANION GAP 5 mmol/L (4-13); CO2 26 mmol/L (21-32)
[2024-08-16 13:00] LABS: BLOOD UREA NITROGEN 13.8 mg/dL (7-18); GLUCOSE,RANDOM 113 mg/dL (74-106)
[2024-08-16 13:02] LABS: CREATININE 1.1 mg/dL (0.55-1.3); SGOT/AST 18 U/L (15-37); SGPT/ALT 15 U/L (13-61)
[2024-08-16 13:04] LABS: BILIRUBIN,TOTAL 0.3 mg/dL (0.2-1)
[2024-08-16 13:05] LABS: ALK PHOS 72 U/L (45-117)
[2024-08-16 13:42] LABS: HEMATOCRIT 37.9 % (40.1-51.0); HEMOGLOBIN 12.4 g/dL (13.7-17.5); MCHC 32.7 g/dl (32.3-36.5); MEAN CELL VOLUME 96.7 fl (79.0-92.2); MEAN PLT VOLUME 11.5 fl (9.4-12.4); PLATELET COUNT 227 x10^3/uL (163-337)
[2024-08-17] MEDS: METHOCARBAMOL 500 MG TABLET PO PRN (17:27)
[2024-08-18] MEDS: diazePAM 5 MG TABLET PO SCH (05:40)
[2024-08-19] MEDS: diazePAM 5 MG TABLET PO SCH (05:51)
[2024-08-19 20:28] VITALS: RESP 18
[2024-08-20] MEDS: diazePAM 5 MG TABLET PO ONE (05:47)
[2024-08-20 06:29] VITALS: BP 147/90; PULSE 85; TEMP 97.1
== END 2024-08-20 09:06 | disposition home or self-care (01) | DRG 774 ==
LOC: YASAS 08:24 → Y3N 11:28
PROVIDERS: ADMIT Psychiatry & Neurology Pain Medicine; ATTEND Allergy & Immunology
PROC: HZ2ZZZZ Detoxification Services for Substance Abuse Treatment (ICD-10-PCS; principal; 2024-08-15)
DX: F10.230 Alcohol dependence with withdrawal, uncomplicated (principal); F14.20 Cocaine dependence, uncomplicated; F17.210 Nicotine dependence, cigarettes, uncomplicated; Z21 Asymptomatic human immunodeficiency virus [HIV] infection status; I10 Essential (primary) hypertension; M79.2 Neuralgia and neuritis, unspecified; M17.0 Bilateral primary osteoarthritis of knee; M54.50 Low back pain, unspecified; G89.29 Other chronic pain; Z62.810 Personal history of physical and sexual abuse in childhood; Z88.8 Allergy status to other drugs, medicaments and biological substances
CPT/HCPCS: 36415; 80053; 80305; 80307; 85027; 86780; 93005; 93010